=== PATIENT | female | born 1930 | race Caucasian/White ===

== ENCOUNTER 2021-01-05 13:03 | Inpatient (IN) ==
--- NOTE | 2021-01-05 14:08 | Emergency Department Note ---
Impression & Plan Acute GI bleeding, High serum chloride ED Provider Note NAME: KATHERYN RAYMUNDO AGE: 89 SEX: F : 1930 ARRIVES VIA: Ambulance INFORMANT: Patient, Chelle MOLINA ED PROVIDER(S): Frank Hammond DO CHIEF COMPLAINT: Blood in stool HPI: Patient is an 89-year-old female who presents to the ER for blood in stool. Patient denies any other complaints. She is undergoing preop testing for loose hardware in her ankle which is protruding through the skin. She has been having black stools and was heme positive. She was on Eliquis for A. fib and they stopped it this morning. She denies any headache or change in vision. No chest pain or shortness of breath. No nausea, vomiting, or diarrhea. No dysuria, urgency, or frequency. ROS: See above HPI for pertinent positives & negatives. A total of 10 systems reviewed and were otherwise negative. PAST MEDICAL HISTORY:See Below PAST SURGICAL HISTORY:See Below FAMILY HISTORY:See Below SOCIAL HISTORY:See Below HOME MEDICATIONS:See Below ALLERGIES:See Below VITALS:See Below PHYSICAL EXAMINATION: GENERAL: Sitting up in bed, alert, well appearing, well nourished, no distress, non-toxic EYE EXAM: normal conjunctiva. OROPHARYNX: no exudate, no erythema, lips, buccal mucosa, and tongue normal and mucous membranes are moist NECK: supple, no nuchal rigidity, no adenopathy, non-tender LUNGS: Clear to auscultation. Normal chest wall mechanics HEART: no murmurs, S1 normal and S2 normal ABDOMEN: abdomen soft, non-tender, normo-active bowel sounds, no masses, no rebound or guarding. UPPER EXTREMITIES: upper extremities are grossly normal. LOWER EXTREMITIES: No pitting edema. NEURO EXAM: Awake alert following commands pleasantly demented moving all extremities MEDICAL DECISION MAKING: Patient is an 89-year-old female who presents the ER for GI bleed. She is from [facility] and then trying to set up surgery for her ankle with protruding hardware present. They noticed dark stool yesterday. Had blood work obtained and she was rectally heme positive. I stopped her Eliquis this morning. IV was established blood work obtained. Labs show no significant leukocytosis or anemia. Hemoglobin is 12.4 down from 13 about a month ago. BMP with slightly elevated chloride. LFTs bilirubin was unremarkable. Troponin was negative. Covid was ordered. CT abdomen pelvis showed some likely inflammation in the lower rectum. Rectally heme positive with dark stool performed with and then RN at bedside. Patient was updated and discussed with Dr. Juana Tejada for further evaluation. Triage Nursing notes reviewed. Limited review of prior medical records performed Vital Signs: reviewed and remarkable for no significant abnormalities Differential diagnosis: Differential diagnoses includes but is not limited to toxic, metabolic, infe ctious, traumatic, cardiac, neurologic, hematologic, psychiatric and inflammatory etiologies.Differential diagnosis includes etiologies such as diverticulitis, diverticulosis, AVM, coagulopathy, colitis, inflammatory bowel disease, malignancy, Delisa-Castanon tear, esophagitis, peptic ulcer disease, v ariceal bleed, gastritis, epistaxis, fissure, hemorrhoids, as well as others were entertained. ER treatment provided: See below Diagnostics interpreted by me: ECG: A. fib rate of 73 Left axis No PVCs Septal Q waves Cardiac Monitoring: An order was placed for continuous cardiac monitoring. The monitor shows a rate of 70 with sinus rhythm. Laboratory studies: As stated above and show below. Imaging studies: CT abdomen pelvis as discussed above Consultation(s): Assist Dr. De La O from GI Discussed with Juana Tejada for further evaluation of the hospitalist service Procedures: none Critical Care: None Past Med/Surg History Medical History Atrial fibrillation on Apixaban Dementia Gastroesophageal reflux disease with hiatal hernia Hypertension Insomnia Surgical History H/O: hysterectomy History of ankle surgery 1999 Social History Smoking Status: Unknown if ever smoked Current Living Situation: Correction Feels Safe at Home: Yes Allergies Allergies Allergy/AdvReac Type Severity Reaction Status Date / Time No Known Drug Allergies Allergy Unknown Verified 01/05/21 15:13 Home Meds Home Medications Medication Instructions Recorded Confirmed apixaban 2.5 mg tablet 2.5 mg PO BID 09/22/20 01/05/21 ascorbic acid (vitamin C) 250 mg 250 mg PO BID 09/22/20 01/05/21 tablet benzonatate 100 mg capsule 100 mg PO BID PRN 09/22/20 01/05/21 cholecalciferol (vitamin D3) 25 25 mcg PO QAM 09/22/20 01/05/21 mcg (1,000 unit) capsule docusate sodium 100 mg capsule 100 mg PO BID PRN 09/22/20 01/05/21 famotidine 20 mg tablet 20 mg PO BID 09/22/20 01/05/21 ferrous sulfate 325 mg (65 mg 325 mg PO BID 09/22/20 01/05/21 iron) tablet furosemide 20 mg tablet 20 mg PO QAM 09/22/20 01/05/21 memantine 10 mg tablet 10 mg PO BID 09/22/20 01/05/21 mirtazapine 15 mg tablet 15 mg PO HS 09/22/20 01/05/21 triamcinolone acetonide 0.1 % 1 applic TOPICAL .COMPLEX PRN 09/22/20 01/05/21 topical cream acetaminophen 1,000 mg PO TID PRN 12/06/20 01/05/21 food supplemt, lactose-reduced 1 ea PO DAILY 12/06/20 01/05/21 [Ensure] metoprolol succinate 50 mg PO QAM 12/06/20 01/05/21 potassium chloride 10 meq PO QAM 12/06/20 01/05/21 saliva substitute combo no.9 1 ea PO TID PRN 12/06/20 01/05/21 [Biotene Dry Mouth Oral Rinse] pantoprazole 40 mg PO DAILY 01/05/21 01/05/21 Results & Data (ED) Vital Signs Vital Signs - 24 hr 01/05/21 13:11 01/05/21 13:23 01/05/21 13:30 Temperature 36.5 C Temperature Source Oral Pulse Rate 78 82 Respiratory Rate 20 19 Respiratory Effort / Characteristics Non-Labored Respiratory Depth Normal Respiratory Pattern Regular Blood Pressure 117/64 112/66 Blood Pressure Mean 81 81 Pulse Oximetry 95 Oxygen Delivery Method Room Air Sepsis Recent Fever Within 48 Hours No Sepsis New/Unexplained Change in Mental Status N/A Sepsis Action Taken by Nursing No Action Required 01/05/21 14:00 01/05/21 14:30 01/05/21 15:01 Temperature Temperature Source Pulse Rate 83 83 98 H Respiratory Rate 22 23 15 Respiratory Effort / Characteristics Respiratory Depth Respiratory Pattern Blood Pressure 109/60 114/68 133/94 Blood Pressure Mean 76 83 107 Pulse Oximetry Oxygen Delivery Method Sepsis Recent Fever Within 48 Hours Sepsis New/Unexplained Change in Mental Status Sepsis Action Taken by Nursing 01/05/21 15:30 01/05/21 16:01 01/05/21 16:30 Temperature Temperature Source Pulse Rate 85 85 77 Respiratory Rate 35 H 19 19 Respiratory Effort / Characteristics Respiratory Depth Respiratory Pattern Blood Pressure Blood Pressure Mean 98 Pulse Oximetry Oxygen Delivery Method Sepsis Recent Fever Within 48 Hours Sepsis New/Unexplained Change in Mental Status Sepsis Action Taken by Nursing 01/05/21 17:00 01/05/21 17:30 01/05/21 18:00 Temperature Temperature Source Pulse Rate 90 96 H Respiratory Rate 23 26 H 29 H Respiratory Effort / Characteristics Respiratory Depth Respiratory Pattern Blood Pressure 137/78 160/86 H Blood Pressure Mean 97 110 Pulse Oximetry Oxygen Delivery Method Sepsis Recent Fever Within 48 Hours Sepsis New/Unexplained Change in Mental Status Sepsis Action Taken by Nursing 01/05/21 18:30 01/05/21 19:01 Temperature Temperature Source Pulse Rate 140 H Respiratory Rate 22 23 Respiratory Effort / Characteristics Respiratory Depth Respiratory Pattern Blood Pressure 157/78 H Blood Pressure Mean 104 Pulse Oximetry Oxygen Delivery Method Sepsis Recent Fever Within 48 Hours Sepsis New/Unexplained Change in Mental Status Sepsis Action Taken by Nursing Laboratory Data Result diagrams: 01/05/21 14:33 01/05/21 14:00 Lab Results 01/05/21 01/05/21 01/05/21 Range/Units 14:00 14:00 14:00 WBC Cancelled RBC Cancelled Hgb Cancelled Hct Cancelled MCV Cancelled MCH Cancelled MCHC Cancelled RDW Std Deviation Cancelled RDW Coeff of Dayami Cancelled Plt Count Cancelled MPV Cancelled Immature Gran % (Auto) Cancelled Neut % (Auto) Cancelled Lymph % (Auto) Cancelled [place] % (Auto) Cancelled Eos % (Auto) Cancelled Baso % (Auto) Cancelled Neut # (Auto) Cancelled Lymph # (Auto) Cancelled [place] # (Auto) Cancelled Eos # (Auto) Cancelled Baso # (Auto) Cancelled Immature Gran # (Auto) Cancelled Absolute Nucleated RBC Cancelled Nucleated RBC % (auto) Cancelled Neutrophils % (Manual) Cancelled Band Neutrophils % Cancelled Lymphocytes % (Manual) Cancelled Prolymphocyte % Cancelled Reactive Lymphs % (Man) Cancelled Monocytes % (Manual) Cancelled Eosinophils % (Manual) Cancelled Basophils % (Manual) Cancelled Metamyelocytes % (Man) Cancelled Myelocytes % (Man) Cancelled Promyelocytes % (Man) Cancelled Blast Cells % (Manual) Cancelled Plasma Cell % (Manual) Cancelled Other Cells % Cancelled Nucleated RBC % Cancelled Neutrophils # (Manual) Cancelled Band Neutrophils # Cancelled Total Absolute Neuts Cancelled Lymphocytes # (Manual) Cancelled Prolymphocyte # Cancelled Reactive Lymphs # Cancelled Total Abs Lymphocytes Cancelled Monocytes # (Manual) Cancelled Eosinophils # (Manual) Cancelled Basophils # (Manual) Cancelled Metamyelocytes # (Man) Cancelled Myelocytes # (Manual) Cancelled Promyelocytes # (Man) Cancelled Blast Cells # (Man) Cancelled Plasma Cell # (Manual) Cancelled Other Cells # Cancelled Nucleated RBCs # (Man) Cancelled Hypersegmented Neuts Cancelled Hyposegmented Neuts Cancelled Hypogranular Neuts Cancelled Large Granular Lymphs Cancelled # Lrg Granular Lymphs Cancelled Hairy Cells Cancelled Smudge Cells Cancelled Toxic Granulation Cancelled Toxic Vacuolation Cancelled Dohle Bodies Cancelled Courtney Rods Cancelled Platelet Estimate Cancelled Hypogranular Platelets Cancelled Clumped Platelets Cancelled Giant Platelets Cancelled Platelet Satelliting Cancelled RBC Morphology Cancelled Polychromasia Cancelled Hypochromasia Cancelled Poikilocytosis Cancelled Basophilic Stippling Cancelled Anisocytosis Cancelled Microcytosis Cancelled Macrocytosis Cancelled Spherocytes Cancelled Pappenheimer Bodies Cancelled Sickle Cells Cancelled Target Cells Cancelled Tear Drop Cells Cancelled Ovalocytes Cancelled Stomatocytes Cancelled Koch-[place] Bodies Cancelled Echinocytes Cancelled Acanthocytes (Spur) Cancelled Rouleaux Cancelled RBC Agglutinates Cancelled Schistocytes Cancelled RBC Morph Comment Cancelled Sezary Cell Cancelled PT Cancelled INR Cancelled APTT Cancelled PTT Ratio Cancelled Sodium 138 (136-145) mmol/L Potassium 4.6 (3.5-5.1) mmol/L Chloride 108 H (98-107) mmol/L Carbon Dioxide 26 (21-32) mmol/L Anion Gap 4.0 (3-11) BUN 24 H (7-18) mg/dl Creatinine 0.89 (0.6-1.2) mg/dl Est Cr Clr Drug Dosing 34.3 ml/min Est GFR ( Amer) 67.1 ml/min Est GFR (Non-Af Amer) 57.9 ml/min BUN/Creatinine Ratio 26.8 H (10-20) Glucose 83 (70-99) mg/dl Calcium 9.8 (8.5-10.1) mg/dl Total Bilirubin 0.7 (0.2-1) mg/dl AST 15 (15-37) U/L ALT 11 L (12-78) U/L Alkaline Phosphatase 131 H (45-117) U/L Troponin I < 0.015 (0-0.045) ng/ml Total Protein 6.7 (6.4-8.2) gm/dl Albumin 3.2 L (3.4-5.0) gm/dl Globulin 3.5 (2.5-4.0) gm/dl Albumin/Globulin Ratio 0.9 (0.9-2) POC Stool Occult Blood (Negative) COVID-19 Eval Order Blood Type Antibody Screen 01/05/21 01/05/21 01/05/21 Range/Units 14:10 14:33 14:33 WBC 5.37 RBC 4.11 L Hgb 12.4 Hct 37.8 MCV 92.0 MCH 30.2 MCHC 32.8 RDW Std Deviation 61.1 H RDW Coeff of Dayami 18.1 H Plt Count 397 MPV 10.0 Immature Gran % (Auto) 0.2 Neut % (Auto) 68.5 Lymph % (Auto) 17.7 [place] % (Auto) 11.9 Eos % (Auto) 1.5 Baso % (Auto) 0.2 Neut # (Auto) 3.68 Lymph # (Auto) 0.95 L [place] # (Auto) 0.64 H Eos # (Auto) 0.08 Baso # (Auto) 0.01 Immature Gran # (Auto) 0.01 Absolute Nucleated RBC Nucleated RBC % (auto) Neutrophils % (Manual) Band Neutrophils % Lymphocytes % (Manual) Prolymphocyte % Reactive Lymphs % (Man) Monocytes % (Manual) Eosinophils % (Manual) Basophils % (Manual) Metamyelocytes % (Man) Myelocytes % (Man) Promyelocytes % (Man) Blast Cells % (Manual) Plasma Cell % (Manual) Other Cells % Nucleated RBC % Neutrophils # (Manual) Band Neutrophils # Total Absolute Neuts Lymphocytes # (Manual) Prolymphocyte # Reactive Lymphs # Total Abs Lymphocytes Monocytes # (Manual) Eosinophils # (Manual) Basophils # (Manual) Metamyelocytes # (Man) Myelocytes # (Manual) Promyelocytes # (Man) Blast Cells # (Man) Plasma Cell # (Manual) Other Cells # Nucleated RBCs # (Man) Hypersegmented Neuts Hyposegmented Neuts Hypogranular Neuts Large Granular Lymphs # Lrg Granular Lymphs Hairy Cells Smudge Cells Toxic Granulation Toxic Vacuolation Dohle Bodies Courtney Rods Platelet Estimate Hypogranular Platelets Clumped Platelets Giant Platelets Platelet Satelliting RBC Morphology Polychromasia Hypochromasia Poikilocytosis Basophilic Stippling Anisocytosis Microcytosis Macrocytosis Spherocytes Pappenheimer Bodies Sickle Cells Target Cells Tear Drop Cells Ovalocytes Stomatocytes Koch-[place] Bodies Echinocytes Acanthocytes (Spur) Rouleaux RBC Agglutinates Schistocytes RBC Morph Comment Sezary Cell PT 11.9 INR 1.2 H APTT 25.7 PTT Ratio 1.0 Sodium (136-145) mmol/L Potassium (3.5-5.1) mmol/L Chloride (98-107) mmol/L Carbon Dioxide (21-32) mmol/L Anion Gap (3-11) BUN (7-18) mg/dl Creatinine (0.6-1.2) mg/dl Est Cr Clr Drug Dosing ml/min Est GFR ( Amer) ml/min Est GFR (Non-Af Amer) ml/min BUN/Creatinine Ratio (10-20) Glucose (70-99) mg/dl Calcium (8.5-10.1) mg/dl Total Bilirubin (0.2-1) mg/dl AST (15-37) U/L ALT (12-78) U/L Alkaline Phosphatase (45-117) U/L Troponin I (0-0.045) ng/ml Total Protein (6.4-8.2) gm/dl Albumin (3.4-5.0) gm/dl Globulin (2.5-4.0) gm/dl Albumin/Globulin Ratio (0.9-2) POC Stool Occult Blood (Negative) COVID-19 Eval Order Blood Type O Positive Antibody Screen NEGATIVE 01/05/21 01/05/21 Range/Units 18:02 18:30 WBC RBC Hgb Hct MCV MCH MCHC RDW Std Deviation RDW Coeff of Dayami Plt Count MPV Immature Gran % (Auto) Neut % (Auto) Lymph % (Auto) [place] % (Auto) Eos % (Auto) Baso % (Auto) Neut # (Auto) Lymph # (Auto) [place] # (Auto) Eos # (Auto) Baso # (Auto) Immature Gran # (Auto) Absolute Nucleated RBC Nucleated RBC % (auto) Neutrophils % (Manual) Band Neutrophils % Lymphocytes % (Manual) Prolymphocyte % Reactive Lymphs % (Man) Monocytes % (Manual) Eosinophils % (Manual) Basophils % (Manual) Metamyelocytes % (Man) Myelocytes % (Man) Promyelocytes % (Man) Blast Cells % (Manual) Plasma Cell % (Manual) Other Cells % Nucleated RBC % Neutrophils # (Manual) Band Neutrophils # Total Absolute Neuts Lymphocytes # (Manual) Prolymphocyte # Reactive Lymphs # Total Abs Lymphocytes Monocytes # (Manual) Eosinophils # (Manual) Basophils # (Manual) Metamyelocytes # (Man) Myelocytes # (Manual) Promyelocytes # (Man) Blast Cells # (Man) Plasma Cell # (Manual) Other Cells # Nucleated RBCs # (Man) Hypersegmented Neuts Hyposegmented Neuts Hypogranular Neuts Large Granular Lymphs # Lrg Granular Lymphs Hairy Cells Smudge Cells Toxic Granulation Toxic Vacuolation Dohle Bodies Courtney Rods Platelet Estimate Hypogranular Platelets Clumped Platelets Giant Platelets Platelet Satelliting RBC Morphology Polychromasia Hypochromasia Poikilocytosis Basophilic Stippling Anisocytosis Microcytosis Macrocytosis Spherocytes Pappenheimer Bodies Sickle Cells Target Cells Tear Drop Cells Ovalocytes Stomatocytes Koch-[place] Bodies Echinocytes Acanthocytes (Spur) Rouleaux RBC Agglutinates Schistocytes RBC Morph Comment Sezary Cell PT INR APTT PTT Ratio Sodium (136-145) mmol/L Potassium (3.5-5.1) mmol/L Chloride (98-107) mmol/L Carbon Dioxide (21-32) mmol/L Anion Gap (3-11) BUN (7-18) mg/dl Creatinine (0.6-1.2) mg/dl Est Cr Clr Drug Dosing ml/min Est GFR ( Amer) ml/min Est GFR (Non-Af Amer) ml/min BUN/Creatinine Ratio (10-20) Glucose (70-99) mg/dl Calcium (8.5-10.1) mg/dl Total Bilirubin (0.2-1) mg/dl AST (15-37) U/L ALT (12-78) U/L Alkaline Phosphatase (45-117) U/L Troponin I (0-0.045) ng/ml Total Protein (6.4-8.2) gm/dl Albumin (3.4-5.0) gm/dl Globulin (2.5-4.0) gm/dl Albumin/Globulin Ratio (0.9-2) POC Stool Occult Blood Negative (Negative) COVID-19 Eval Order Covid19 at [facility] Blood Type Antibody Screen Administered Medications Discontinued Medications Sodium Chloride (Nss) 500 mls @ 999 mls/hr IV .Q31M DESIRAE Stop: 01/05/21 14:45 Last Infusion: 01/05/21 15:13 Dose: 0 mls/hr Documented by: [id number] Admin: 01/05/21 14:35 Dose: 999 mls/hr Documented by: [id number] Ioversol (Optiray 320 100ml) 94 ml IV ONCE ONE Stop: 01/05/21 15:50 Last Admin: 01/05/21 15:49 Dose: 94 ml Documented by: [id number] Imaging Data Radiologist's Impression: Abdomen/Pelvis CT 01/05/21 14:[address] WITH IV CONTRAST CT DOSE: 336.29 mGy.cm HISTORY: Generalized abdominal pain. GI bleed. TECHNIQUE: Multiaxial CT images of the abdomen and pelvis were performed following the use of intravenous contrast. A dose lowering technique was utilized adhering to the principles of ALARA. COMPARISON STUDY: None. FINDINGS: The heart is moderately enlarged. There is a small right pleural effusion. Right lower lobe posterior consolidation favors compressive atelectasis from the pleural effusion. No pneumoperitoneum. No pneumatosis. Multiple healing left lower rib fractures. Partially visualized compression deformity at T9. There are severe compression deformity is at T11, L1, and L3. These are technically age indeterminate but likely represent subacute to chronic compression deformities. There appears to be acute to subacute mild superior endplate compression deformity at L2. There are old, healed right lower rib fractures. Mild heterogeneous opacification of the liver. There are few small hypodense hepatic lesions. These favor cysts. The gallbladder is suboptimally assessed due to the motion artifact but appears unremarkable. The pancreas, spleen, adrenal glands are unremarkable. The main portal vein is patent. No hydronephrosis. Bilateral renal hypodense lesions favor cysts. No retroperitoneal lymphadenopathy or hematoma. Moderate calcified plaque within the normal caliber abdominal aorta. 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 The bladder is unremarkable. Moderate well-formed stool seen throughout the majority colon and rectum. No dilated loops of bowel to suggest an obstruction. Extensive colonic diverticulosis. No evidence for acute diverticulitis. Mild thickening at the distal rectum/anus with mild adjacent inflammatory change. This could represent an inflammatory process or hemorrhoids. IMPRESSION: 1. Mild thickening at the distal rectum/anus with mild adjacent inflammatory change. This could represent an inflammatory process or hemorrhoids. 2. Colonic diverticulosis. No evidence for acute diverticulitis. 3. Small right pleural effusion. 4. Multiple compression deformities within the lower thoracic and lumbar spine as described above. The majority of these appear to represent subacute to chronic fractures. The L2 mild superior endplate compression deformity may be acute to subacute.. 5. Multiple healing left lower rib fractures. 6. 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 7. Additional findings as described above. ACT 112: Negative or not required by law. Electronically signed by: Mushtaq Rosenberg M.D. 01/05/2021 4:06 PM Discharge Plan Visit Data Chief Complaint: Rectal Bleed Stated Complaint: HIP PAIN, GI ASSESSMENT ED Provider: Frank Hammond Discharge Problem: Acute GI bleeding, High serum chloride Forms Stand Alone Forms: [facility] Prescriptions Prescriptions: No Action Eliquis 2.5 mg tablet 2.5 mg PO BID RF: 0 famotidine 20 mg tablet 20 mg PO BID RF: 0 ferrous sulfate 325 mg (65 mg iron) tablet 325 mg PO BID RF: 0 furosemide 20 mg tablet 20 mg PO QAM RF: 0 memantine 10 mg tablet 10 mg PO BID RF: 0 mirtazapine 15 mg tablet 15 mg PO HS RF: 0 ascorbic acid (vitamin C) 250 mg tablet 250 mg PO BID RF: 0 cholecalciferol (vitamin D3) 25 mcg (1,000 unit) capsule 25 mcg PO QAM RF: 0 benzonatate 100 mg capsule 100 mg PO BID PRN (Reason: Cough) RF: 0 docusate sodium 100 mg capsule 100 mg PO BID PRN (Reason: Constipation) RF: 0 triamcinolone acetonide 0.1 % cream 1 applic topical .COMPLEX PRN (Reason: .) RF: 0 potassium chloride 10 mEq Capsule, Extended Release 10 meq PO QAM RF: 0 metoprolol succinate 50 mg Tablet Extended Release 24 Hr 50 mg PO QAM RF: 0 acetaminophen 500 mg Tablet 1,000 mg PO TID PRN (Reason: Pain) RF: 0 Ensure Liquid 1 ea PO DAILY RF: 0 Biotene Dry Mouth Oral Rinse Mouthwash 1 ea PO TID PRN (Reason: Dry Mouth) RF: 0 pantoprazole 40 mg Tablet,Delayed Release (Dr/Ec) 40 mg PO DAILY RF: 0
[2021-01-05] MEDS ORDERED: SODIUM CHLORIDE 0.9% 500 ML IV SCH (14:15)
[2021-01-05 14:37] LABS: Alanine Aminotransferase 11 U/L (12-78); Albumin Level 3.2 gm/dl (3.4-5.0); Aspartate Aminotransferase 15 U/L (15-37); BUN Creatinine Ratio 26.8 (10-20); Blood Urea Nitrogen 24 mg/dl (7-18); Calcium 9.8 mg/dl (8.5-10.1); Carbon Dioxide 26 mmol/L (21-32); Chloride 108 mmol/L (98-107); Creatinine Clr Calc Pharmacy 34.3 ml/min; Est GFR (African American) 67.1 ml/min; Est GFR (Non-African American) 57.9 ml/min; Glucose 83 mg/dl (70-99); Potassium 4.6 mmol/L (3.5-5.1); Sodium 138 mmol/L (136-145)
[2021-01-05 14:42] LABS: Albumin Globulin Ratio 0.9 (0.9-2); Alkaline Phosphatase 131 U/L (45-117); Bilirubin,Total 0.7 mg/dl (0.2-1); Globulin 3.5 gm/dl (2.5-4.0); Total Protein 6.7 gm/dl (6.4-8.2); Troponin I < 0.015 ng/ml (0-0.045)
[2021-01-05 14:45] LABS: Basophils # (auto) 0.01 K/uL (0-0.2); Basophils % (auto) 0.2 %; Eosinophils # (auto) 0.08 K/uL (0-0.5); Eosinophils % (auto) 1.5 %; Hematocrit (blood only) 37.8 % (37-47); Hemoglobin 12.4 g/dL (12.0-16.0); Immature Granulocytes # (auto) 0.01 K/uL (0.00-0.02); Immature Granulocytes % (auto) 0.2 %; Lymphocytes # (auto) 0.95 K/uL (1.2-3.4); Lymphocytes % (auto) 17.7 %; Mean Corpuscular Hemoglobin 30.2 pg (25-34); Mean Corpuscular Hgb Conc 32.8 g/dL (32-36); Monocytes # (auto) 0.64 K/uL (0.11-0.59); Monocytes % (auto) 11.9 %; Neutrophils # (auto) 3.68 K/uL (1.4-6.5); Neutrophils % (auto) 68.5 %; Platelet Count 397 K/uL (130-400); RDW Coefficient of Variation 18.1 % (11.5-14.5); RDW Standard Deviation 61.1 fL (36.4-46.3); Red Blood Count 4.11 M/uL (4.2-5.4); White Blood Count 5.37 K/uL (4.8-10.8)
[2021-01-05 14:52] LABS: INR 1.2 (0.9-1.1); Partial Thromboplastin Time 25.7 Seconds (21.0-31.0); Prothrombin Time 11.9 Seconds (9.0-12.0)
[2021-01-05] MEDS ORDERED: OPTIRAY 320 100ml IV ONE (15:49)
--- NOTE | 2021-01-05 16:07 | CT Scan Report ---
ABDOMEN AND PELVIS CT WITH IV CONTRAST CT DOSE: 336.29 mGy.cm HISTORY: Generalized abdominal pain. GI bleed. TECHNIQUE: Multiaxial CT images of the abdomen and pelvis were performed following the use of intrave nous contrast. A dose lowering technique was utilized adhering to the principles of ALARA. COMPARISON STUDY: None. FINDINGS: The heart is moderately enlarged. There is a small right pleural effusion. Right lower lobe posterior consolidation favors compressive atelectasis from the pleural effusion. No pneumoperitoneu m. No pneumatosis. Multiple healing left lower rib fractures. Partially visualized compression deform ity at T9. There are severe compression deformity is at T11, L1, and L3. These are technically age in determinate but likely represent subacute to chronic compression deformities. There appears to be acu te to subacute mild superior endplate compression deformity at L2. There are old, healed right lower rib fractures. Mild heterogeneous opacification of the liver. There are few small hypodense hepatic l esions. These favor cysts. The gallbladder is suboptimally assessed due to the motion artifact but ap pears unremarkable. The pancreas, spleen, adrenal glands are unremarkable. The main portal vein is pa tent. No hydronephrosis. Bilateral renal hypodense lesions favor cysts. No retroperitoneal lymphadeno gavin or hematoma. Moderate calcified plaque within the normal caliber abdominal aorta. Aneurysmal di latation of the proximal left internal iliac artery measuring 1.9 cm in diameter. The bladder is unre markable. Moderate well-formed stool seen throughout the majority colon and rectum. No dilated loops of bowel to suggest an obstruction. Extensive colonic diverticulosis. No evidence for acute diverticu litis. Mild thickening at the distal rectum/anus with mild adjacent inflammatory change. This could r epresent an inflammatory process or hemorrhoids. IMPRESSION: 1. Mild thickening at the distal rectum/anus with mild adjacent inflammatory change. This could repre sent an inflammatory process or hemorrhoids. 2. Colonic diverticulosis. No evidence for acute diverticulitis. 3. Small right pleural effusion. 4. Multiple compression deformities within the lower thoracic and lumbar spine as described above. Th e majority of these appear to represent subacute to chronic fractures. The L2 mild superior endplate compression deformity may be acute to subacute.. 5. Multiple healing left lower rib fractures. 6. 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 7. Additional findings as described above. ACT 112: Negative or not required by law. Electronically signed by: Mushtaq Rosenberg M.D. 01/05/2021 4:06 PM
--- NOTE | 2021-01-05 19:51 | History & Physical Report ---
Date of Service January 05, 2021 Assessment & Plan (1) Acute GI bleedinyo female presenting from [facility] with complaint of black, tarry heme + stools. Patient on Eliquis anticoagulation for atrial fibrillation. Hemodynamically stable, Hgb=12.4, Hct=37.8. No active bleeding. ER attending spoke with GI re: this case and recommended to admit patient to hospital and keep her NPO, possible scope in AM. -Observation to medical with telemetry -Keep NPO -Maintain two large bore PIVs -Pepcid 20mg IV BID -Continue Protonix 40mg po daily -Monitor CBC -GI consultation appreciated Present on Admission?: Yes (2) Atrial fibrillation: Rate controlled atrial fibrillation. On anticoagulation with Eliquis -Continue Metoprolol 50mg po qAM -Hold Eliquis in setting of active bleed -Telemetry monitoring Present on Admission?: Yes (3) Dementia: Chronic. Patient oriented to self. -Continue Namenda -Frequent orientation, delirium prevention strategies Present on Admission?: Yes (4) Rib pain: Tenderness with palpation left rib -Check left rib series -Tylenol PRN pain Present on Admission?: Yes (5) Hypertension: Blood pressure stable at present -Continue Metoprolol -Continue to monitor F/E/N - LR at 80mL/hr x 1 liter, monitor electrolytes and replete as needed, NPO for now Ppx - SCDs Code - Full per discussion with patient Dispo - Observation to medical with telemetry (6) Gastroesophageal reflux disease with hiatal hernia: History of Present Illness Chief Complaint: Rectal bleeding Primary Care Provider: Madeleine [facility] Olegario Smyth is an 89yo female with history of atrial fibrillation on Eliquis anticoagulation, GERD, HTN and Dementia. She presents from [facility] with complaint of black bowel movements. Patient is a poor historian secondary to underlying dementia. She is unaware of the events preceding her arrival. History obtained mainly through discussion with ER attending and chart review. By report, patient had black, tarry bowel movements yesterday. Patient denies chest pain, cough, SOB, dizziness, abdominal pain, nausea, vomiting or constipation. She has occasional diarrhea but is unaware of any blood in her bowel movements. She is complaining only of left rib pain. She is to have repair of her left ankle hardware sometime in the future. ER Course: Heme + stools from 01/04/21 and today Allergies Allergy/AdvReac Type Severity Reaction Status Date / Time No Known Drug Allergies Allergy Unknown Verified 01/05/21 15:13 Home Medications Medication Instructions Recorded Confirmed Type apixaban 2.5 mg tablet 2.5 mg PO BID 09/22/20 01/05/21 History ascorbic acid (vitamin C) 250 mg 250 mg PO BID 09/22/20 01/05/21 History tablet benzonatate 100 mg capsule 100 mg PO BID PRN 09/22/20 01/05/21 History cholecalciferol (vitamin D3) 25 25 mcg PO QAM 09/22/20 01/05/21 History mcg (1,000 unit) capsule docusate sodium 100 mg capsule 100 mg PO BID PRN 09/22/20 01/05/21 History famotidine 20 mg tablet 20 mg PO BID 09/22/20 01/05/21 History ferrous sulfate 325 mg (65 mg 325 mg PO BID 09/22/20 01/05/21 History iron) tablet furosemide 20 mg tablet 20 mg PO QAM 09/22/20 01/05/21 History memantine 10 mg tablet 10 mg PO BID 09/22/20 01/05/21 History mirtazapine 15 mg tablet 15 mg PO HS 09/22/20 01/05/21 History triamcinolone acetonide 0.1 % 1 applic TOPICAL .COMPLEX PRN 09/22/20 01/05/21 History topical cream acetaminophen 1,000 mg PO TID PRN 12/06/20 01/05/21 History food supplemt, lactose-reduced 1 ea PO DAILY 12/06/20 01/05/21 History [Ensure] metoprolol succinate 50 mg PO QAM 12/06/20 01/05/21 History potassium chloride 10 meq PO QAM 12/06/20 01/05/21 History saliva substitute combo no.9 1 ea PO TID PRN 12/06/20 01/05/21 History [Biotene Dry Mouth Oral Rinse] pantoprazole 40 mg PO DAILY 01/05/21 01/05/21 History Past Med/Surg History Medical History Atrial fibrillation on Apixaban Dementia Gastroesophageal reflux disease with hiatal hernia Hypertension Insomnia Surgical History H/O: hysterectomy History of ankle surgery 1999 Social History Smoking Status: Unknown if ever smoked Current Living Situation: [facility] Feels Safe at Home: Yes Review of Systems Review of Systems: All systems reviewed & are unremarkable except as noted in HPI & below Left rib pain Diarrhea Physical Exam Physical Exam: General: frail elderly patient resting comfortably, NAD, non- toxic in appearance, AA&O to self only Skin: warm, dry, intact, no rashes or lesions HEENT: NC/AT, PERRL, EOMI, anicteric sclera, conjunctiva without injection, external ear normal to inspection and nontender, nares patent, moist mucus membranes, dentition intact, no oropharyngeal lesions, neck supple, trachea midline, no LAD, no thyromegaly, no JVD Heart: +S1/S2, irregularly irregular, no m/r/g Lungs: equal air entry bilaterally, no rales/rhonchi/wheezes, tenderness with palpation of left ribs Abd: +BS, soft, NT/ND, no masses/organomegaly/ascites Ext: warm, 2+ pulses in UE/LE bilaterally, no clubbing/cyanosis or edema Neuro: nonfocal, patient AA&O to self, speech intact, no facial droop, moving all extremities on command with equal strength 5/5 Results & Data Results & Data ([facility]) Vital Signs (Past 12 Hours) Vital Signs Temp Pulse Resp BP Pulse Ox 01/05/21 19:01 140 H 23 01/05/21 18:30 22 157/78 H 01/05/21 18:00 96 H 29 H 160/86 H 01/05/21 17:30 90 26 H 137/78 01/05/21 17:00 23 01/05/21 16:30 77 19 01/05/21 16:01 85 19 01/05/21 15:30 85 35 H 01/05/21 15:01 98 H 15 133/94 01/05/21 14:30 83 23 114/68 01/05/21 14:00 83 22 109/60 01/05/21 13:30 82 19 112/66 01/05/21 13:23 36.5 C 78 20 117/64 95 Laboratory Results Laboratory Results WBC 5.37 K/uL (4.8-10.8) 01/05/21 14:33 RBC 4.11 M/uL (4.2-5.4) L 01/05/21 14:33 Hgb 12.4 g/dL (12.0-16.0) 01/05/21 14:33 Hct 37.8 % (37-47) 01/05/21 14:33 MCV 92.0 fL (80-100) 01/05/21 14:33 MCH 30.2 pg (25-34) 01/05/21 14:33 MCHC 32.8 g/dL (32-36) 01/05/21 14:33 RDW Std Deviation 61.1 fL (36.4-46.3) H 01/05/21 14:33 RDW Coeff of Dayami 18.1 % (11.5-14.5) H 01/05/21 14:33 Plt Count 397 K/uL (130-400) 01/05/21 14:33 MPV 10.0 fL (7.4-10.4) 01/05/21 14:33 Immature Gran % (Auto) 0.2 % 01/05/21 14:33 Neut % (Auto) 68.5 % 01/05/21 14:33 Lymph % (Auto) 17.7 % 01/05/21 14:33 Charlton % (Auto) 11.9 % 01/05/21 14:33 Eos % (Auto) 1.5 % 01/05/21 14:33 Baso % (Auto) 0.2 % 01/05/21 14:33 Neut # (Auto) 3.68 K/uL (1.4-6.5) 01/05/21 14:33 Lymph # (Auto) 0.95 K/uL (1.2-3.4) L 01/05/21 14:33 Charlton # (Auto) 0.64 K/uL (0.11-0.59) H 01/05/21 14:33 Eos # (Auto) 0.08 K/uL (0-0.5) 01/05/21 14:33 Baso # (Auto) 0.01 K/uL (0-0.2) 01/05/21 14:33 Immature Gran # (Auto) 0.01 K/uL (0.00-0.02) 01/05/21 14:33 Absolute Nucleated RBC Cancelled 01/05/21 14:00 Nucleated RBC % (auto) Cancelled 01/05/21 14:00 Neutrophils % (Manual) Cancelled 01/05/21 14:00 Band Neutrophils % Cancelled 01/05/21 14:00 Lymphocytes % (Manual) Cancelled 01/05/21 14:00 Prolymphocyte % Cancelled 01/05/21 14:00 Reactive Lymphs % (Man) Cancelled 01/05/21 14:00 Monocytes % (Manual) Cancelled 01/05/21 14:00 Eosinophils % (Manual) Cancelled 01/05/21 14:00 Basophils % (Manual) Cancelled 01/05/21 14:00 Metamyelocytes % (Man) Cancelled 01/05/21 14:00 Myelocytes % (Man) Cancelled 01/05/21 14:00 Promyelocytes % (Man) Cancelled 01/05/21 14:00 Blast Cells % (Manual) Cancelled 01/05/21 14:00 Plasma Cell % (Manual) Cancelled 01/05/21 14:00 Other Cells % Cancelled 01/05/21 14:00 Nucleated RBC % Cancelled 01/05/21 14:00 Neutrophils # (Manual) Cancelled 01/05/21 14:00 Band Neutrophils # Cancelled 01/05/21 14:00 Total Absolute Neuts Cancelled 01/05/21 14:00 Lymphocytes # (Manual) Cancelled 01/05/21 14:00 Prolymphocyte # Cancelled 01/05/21 14:00 Reactive Lymphs # Cancelled 01/05/21 14:00 Total Abs Lymphocytes Cancelled 01/05/21 14:00 Monocytes # (Manual) Cancelled 01/05/21 14:00 Eosinophils # (Manual) Cancelled 01/05/21 14:00 Basophils # (Manual) Cancelled 01/05/21 14:00 Metamyelocytes # (Man) Cancelled 01/05/21 14:00 Myelocytes # (Manual) Cancelled 01/05/21 14:00 Promyelocytes # (Man) Cancelled 01/05/21 14:00 Blast Cells # (Man) Cancelled 01/05/21 14:00 Plasma Cell # (Manual) Cancelled 01/05/21 14:00 Other Cells # Cancelled 01/05/21 14:00 Nucleated RBCs # (Man) Cancelled 01/05/21 14:00 Hypersegmented Neuts Cancelled 01/05/21 14:00 Hyposegmented Neuts Cancelled 01/05/21 14:00 Hypogranular Neuts Cancelled 01/05/21 14:00 Large Granular Lymphs Cancelled 01/05/21 14:00 # Lrg Granular Lymphs Cancelled 01/05/21 14:00 Hairy Cells Cancelled 01/05/21 14:00 Smudge Cells Cancelled 01/05/21 14:00 Toxic Granulation Cancelled 01/05/21 14:00 Toxic Vacuolation Cancelled 01/05/21 14:00 Dohle Bodies Cancelled 01/05/21 14:00 Courtney Rods Cancelled 01/05/21 14:00 Platelet Estimate Cancelled 01/05/21 14:00 Hypogranular Platelets Cancelled 01/05/21 14:00 Clumped Platelets Cancelled 01/05/21 14:00 Giant Platelets Cancelled 01/05/21 14:00 Platelet Satelliting Cancelled 01/05/21 14:00 RBC Morphology Cancelled 01/05/21 14:00 Polychromasia Cancelled 01/05/21 14:00 Hypochromasia Cancelled 01/05/21 14:00 Poikilocytosis Cancelled 01/05/21 14:00 Basophilic Stippling Cancelled 01/05/21 14:00 Anisocytosis Cancelled 01/05/21 14:00 Microcytosis Cancelled 01/05/21 14:00 Macrocytosis Cancelled 01/05/21 14:00 Spherocytes Cancelled 01/05/21 14:00 Pappenheimer Bodies Cancelled 01/05/21 14:00 Sickle Cells Cancelled 01/05/21 14:00 Target Cells Cancelled 01/05/21 14:00 Tear Drop Cells Cancelled 01/05/21 14:00 Ovalocytes Cancelled 01/05/21 14:00 Stomatocytes Cancelled 01/05/21 14:00 Koch-Farrell Bodies Cancelled 01/05/21 14:00 Echinocytes Cancelled 01/05/21 14:00 Acanthocytes (Spur) Cancelled 01/05/21 14:00 Rouleaux Cancelled 01/05/21 14:00 RBC Agglutinates Cancelled 01/05/21 14:00 Schistocytes Cancelled 01/05/21 14:00 RBC Morph Comment Cancelled 01/05/21 14:00 Sezary Cell Cancelled 01/05/21 14:00 PT 11.9 Seconds (9.0-12.0) 01/05/21 14:33 INR 1.2 (0.9-1.1) H 01/05/21 14:33 APTT 25.7 Seconds (21.0-31.0) 01/05/21 14:33 PTT Ratio 1.0 01/05/21 14:33 Sodium 138 mmol/L (136-145) 01/05/21 14:00 Potassium 4.6 mmol/L (3.5-5.1) 01/05/21 14:00 Chloride 108 mmol/L (98-107) H 01/05/21 14:00 Carbon Dioxide 26 mmol/L (21-32) 01/05/21 14:00 Anion Gap 4.0 (3-11) 01/05/21 14:00 BUN 24 mg/dl (7-18) H 01/05/21 14:00 Creatinine 0.89 mg/dl (0.6-1.2) 01/05/21 14:00 Est Cr Clr Drug Dosing 34.3 ml/min 01/05/21 14:00 Est GFR ( Amer) 67.1 ml/min 01/05/21 14:00 Est GFR (Non-Af Amer) 57.9 ml/min 01/05/21 14:00 BUN/Creatinine Ratio 26.8 (10-20) H 01/05/21 14:00 Glucose 83 mg/dl (70-99) 01/05/21 14:00 Calcium 9.8 mg/dl (8.5-10.1) 01/05/21 14:00 Total Bilirubin 0.7 mg/dl (0.2-1) 01/05/21 14:00 AST 15 U/L (15-37) 01/05/21 14:00 ALT 11 U/L (12-78) L 01/05/21 14:00 Alkaline Phosphatase 131 U/L (45-117) H 01/05/21 14:00 Troponin I < 0.015 ng/ml (0-0.045) 01/05/21 14:00 Total Protein 6.7 gm/dl (6.4-8.2) 01/05/21 14:00 Albumin 3.2 gm/dl (3.4-5.0) L 01/05/21 14:00 Globulin 3.5 gm/dl (2.5-4.0) 01/05/21 14:00 Albumin/Globulin Ratio 0.9 (0.9-2) 01/05/21 14:00 POC Stool Occult Blood Negative (Negative) 01/05/21 18:02 COVID-19 Eval Order Covid19 at [facility] 01/05/21 18:30 Blood Type O Positive 01/05/21 14:10 Antibody Screen NEGATIVE 01/05/21 14:10 Impressions Abdomen/Pelvis CT 01/05/21 14:[address] WITH IV CONTRAST CT DOSE: 336.29 mGy.cm HISTORY: Generalized abdominal pain. GI bleed. TECHNIQUE: Multiaxial CT images of the abdomen and pelvis were performed following the use of intravenous contrast. A dose lowering technique was utilized adhering to the principles of ALARA. COMPARISON STUDY: None. FINDINGS: The heart is moderately enlarged. There is a small right pleural effusion. Right lower lobe posterior consolidation favors compressive atelectasis from the pleural effusion. No pneumoperitoneum. No pneumatosis. Multiple healing left lower rib fractures. Partially visualized compression deformity at T9. There are severe compression deformity is at T11, L1, and L3. These are technically age indeterminate but likely represent subacute to chronic compression deformities. There appears to be acute to subacute mild superior endplate compression deformity at L2. There are old, healed right lower rib fractures. Mild heterogeneous opacification of the liver. There are few small hypodense hepatic lesions. These favor cysts. The gallbladder is suboptimally assessed due to the motion artifact but appears unremarkable. The pancreas, spleen, adrenal glands are unremarkable. The main portal vein is patent. No hydronephrosis. Bilateral renal hypodense lesions favor cysts. No ret roperitoneal lymphadenopathy or hematoma. Moderate calcified plaque within the normal caliber abdominal aorta. 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 The bladder is unremarkable. Moderate well-formed stool seen throughout the majority colon and rectum. No dilated loops of bowel to suggest an obstruction. Extensive colonic diverticulosis. No evidence for acute diverticulitis. Mild thickening at the distal rectum/anus with mild adjacent inflammatory change. This could represent an inflammatory process or hemorrhoids. IMPRESSION: 1. Mild thickening at the distal rectum/anus with mild adjacent inflammatory change. This could represent an inflammatory process or hemorrhoids. 2. Colonic diverticulosis. No evidence for acute diverticulitis. 3. Small right pleural effusion. 4. Multiple compression deformities within the lower thoracic and lumbar spine as described above. The majority of these appear to represent subacute to chronic fractures. The L2 mild superior endplate compression deformity may be acute to subacute.. 5. Multiple healing left lower rib fractures. 6. 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 7. Additional findings as described above. ACT 112: Negative or not required by law. Electronically signed by: Mushtaq Rosenberg M.D. 01/05/2021 4:06 PM ECG Additional Comments: Atrial fibrillation, no acute ischemic changes Code Status & VTE Plan VTE Prophylaxis Plan VTE Prophylaxis will be ordered: Yes PG Care Time/CCT Total # of Minutes Spent Total Time Spent with Patient: Total time spent is greater than 50% in coordination of care (as documented) at patient's floor/unit and/or counseling patient: Coding Level of Care Code 40801 OBS Care - Level 2 Diagnoses Acute GI bleeding K92.2 Atrial fibrillation I48.20 Atrial fibrillation type: unspecified chronic Dementia F03.90 Dementia type: unspecified type Dementia behavioral disturbance: without behavioral disturbance Rib pain R07.81 Hypertension I10 Hypertension type: primary hypertension Gastroesophageal reflux disease with hiatal hernia K21.9; K44.9 (1) Atrial fibrillation Atrial fibrillation type: unspecified chronic Qualified Code(s): I48.20 - Chronic atrial fibrillation, unspecified (2) Dementia Dementia type: unspecified type Dementia behavioral disturbance: without behavioral disturbance Qualified Code(s): F03.90 - Unspecified dementia without behavioral disturbance (3) Hypertension Hypertension type: primary hypertension Qualified Code(s): I10 - Essential (primary) hypertension
[2021-01-05] MEDS ORDERED: BENZONATATE 100 MG CAPSULE PO PRN (22:42)
[2021-01-05] MEDS ORDERED: FAMOTIDINE 20 MG TAB PO SCH (22:42)
[2021-01-05] MEDS ORDERED: ONDANSETRON INJ 2 MG/ML 2 ML VIAL IV PRN (22:42)
[2021-01-05] MEDS ORDERED: LACTATED RINGER'S 1,000 ML IV SCH (23:00)
[2021-01-05] MEDS: FAMOTIDINE 20 MG in SYRINGE 3 ML IV SCH (23:48)
[2021-01-05] MEDS: MEMANTINE HCL 10 MG TAB PO SCH (23:49)
[2021-01-05] MEDS: MIRTAZAPINE TAB 15 MG TAB PO SCH (23:49)
[2021-01-05] MEDS: FERROUS SULFATE 325 MG TAB PO SCH (23:49)
[2021-01-05] MEDS: FAMOTIDINE 20 MG TAB PO SCH (23:49)
[2021-01-06] MEDS: ACETAMINOPHEN 500 MG TAB PO PRN ×3 (02:23→20:05)
--- NOTE | 2021-01-06 06:11 | Electrocardiogram Report ---
Test Reason : Blood Pressure : / mmHG Vent. Rate : 073 BPM Atrial Rate : 081 BPM P-R Int : 000 ms QRS Dur : 074 ms QT Int : 388 ms P-R-T Axes : 000 -17 034 degrees QTc Int : 427 ms Atrial fibrillation Anteroseptal infarct , age undetermined Abnormal ECG No previous ECGs available Confirmed by Ivan Cheney ([id number]) on 01/06/2021 6:10:56 AM Referred By: [facility] Confirmed By:Ivan Cehney
[2021-01-06 08:31] LABS: Basophils # (auto) 0.01 K/uL (0-0.2); Basophils % (auto) 0.2 %; Eosinophils # (auto) 0.09 K/uL (0-0.5); Eosinophils % (auto) 1.5 %; Hemoglobin 12.4 g/dL (12.0-16.0); Immature Granulocytes # (auto) 0.01 K/uL (0.00-0.02); Immature Granulocytes % (auto) 0.2 %; Lymphocytes # (auto) 0.88 K/uL (1.2-3.4); Lymphocytes % (auto) 14.8 %; Mean Corpuscular Hemoglobin 30.2 pg (25-34); Mean Corpuscular Hgb Conc 32.6 g/dL (32-36); Mean Corpuscular Volume 92.7 fL (80-100); Mean Platelet Volume 10.1 fL (7.4-10.4); Monocytes % (auto) 11.8 %; Neutrophils # (auto) 4.25 K/uL (1.4-6.5); Neutrophils % (auto) 71.5 %; Platelet Count 402 K/uL (130-400); RDW Coefficient of Variation 17.9 % (11.5-14.5); RDW Standard Deviation 60.9 fL (36.4-46.3); White Blood Count 5.94 K/uL (4.8-10.8)
[2021-01-06] MEDS: FERROUS SULFATE 325 MG TAB PO SCH ×2 (08:35→20:05)
[2021-01-06] MEDS: FAMOTIDINE 20 MG in SYRINGE 3 ML IV SCH ×2 (08:35→20:05)
[2021-01-06] MEDS: FAMOTIDINE 20 MG TAB PO SCH ×2 (08:35→20:05)
[2021-01-06] MEDS: FUROSEMIDE 20 MG TAB PO SCH (08:35)
[2021-01-06] MEDS: METOPROLOL SUCC 50MG EXT REL TAB PO SCH (08:35)
[2021-01-06] MEDS: MEMANTINE HCL 10 MG TAB PO SCH ×2 (08:35→20:05)
[2021-01-06] MEDS ORDERED: PANTOprazole 40 MG TAB PO SCH (09:00)
[2021-01-06 09:02] LABS: Albumin Level 3.2 gm/dl (3.4-5.0); BUN Creatinine Ratio 28.9 (10-20); Bilirubin Direct 0.3 mg/dl (0-0.2); Calcium 9.2 mg/dl (8.5-10.1); Creatinine Clr Calc Pharmacy 39.2 ml/min; Est GFR (African American) 78.7 ml/min; Est GFR (Non-African American) 67.9 ml/min; Potassium 3.6 mmol/L (3.5-5.1)
[2021-01-06 09:03] LABS: Bilirubin,Total 0.8 mg/dl (0.2-1); Total Protein 6.7 gm/dl (6.4-8.2)
--- NOTE | 2021-01-06 09:58 | Gastrointestinal Consultation ---
Date of Consultation January 06, 2021 Assessment & Plan (1) Heme positive stool: * Given COVID-19 positivity and hemodynamic stability. No plans for urgent endoscopy. * Increased Pantoprazole to 40 mg twice daily. * Continue Pepcid 20 mg BID. * Outpatient endoscopic evaluation in approximately 2-4 weeks if clinically indicated. * Continue supportive care. Supervising Physician Co-Signing Physician Notes I personally evaluated the patient and agree with the findings as documented byJESSE Tucker History of Present Illness Reason for Consultation: GIB Requesting Physician: Dr. Tejada Attending Physician: Max Jensen MD History of Present Illness Patient is a 89 y.o. female with a history of dementia and chronic atrial fibrillation on Eliquis for anticoagulation admitted due to melena and heme positive stool. Patient is a poor historian but denies any abdominal pain, nausea, or known melena. Per nursing, she has not had any tarry stools this morning. She remains hemodynamically stable with H&H of 12.4 and 38.0% this morning. Eliquis has been held since admission. Placed on Pepcid and Pantoprazole. Per nursing, she has been agitated this morning and has disconnected her monitor tech and pulled out her IV access. The patient reports she is having flank pain and is going for x ray this morning to evaluate for possible rib fracture. She remains on isolation for COVID-19 positivity. She is a resident of [facility]. Allergies Allergy/AdvReac Type Severity Reaction Status Date / Time No Known Drug Allergies Allergy Unknown Verified 01/05/21 15:13 Home Medications Medication Instructions Recorded Confirmed Type apixaban 2.5 mg tablet 2.5 mg PO BID 09/22/20 01/05/21 History ascorbic acid (vitamin C) 250 mg 250 mg PO BID 09/22/20 01/05/21 History tablet benzonatate 100 mg capsule 100 mg PO BID PRN 09/22/20 01/05/21 History cholecalciferol (vitamin D3) 25 25 mcg PO QAM 09/22/20 01/05/21 History mcg (1,000 unit) capsule docusate sodium 100 mg capsule 100 mg PO BID PRN 09/22/20 01/05/21 History famotidine 20 mg tablet 20 mg PO BID 09/22/20 01/05/21 History ferrous sulfate 325 mg (65 mg 325 mg PO BID 09/22/20 01/05/21 History iron) tablet furosemide 20 mg tablet 20 mg PO QAM 09/22/20 01/05/21 History memantine 10 mg tablet 10 mg PO BID 09/22/20 01/05/21 History mirtazapine 15 mg tablet 15 mg PO HS 09/22/20 01/05/21 History triamcinolone acetonide 0.1 % 1 applic TOPICAL .COMPLEX PRN 09/22/20 01/05/21 History topical cream acetaminophen 1,000 mg PO TID PRN 12/06/20 01/05/21 History food supplemt, lactose-reduced 1 ea PO DAILY 12/06/20 01/05/21 History [Ensure] metoprolol succinate 50 mg PO QAM 12/06/20 01/05/21 History potassium chloride 10 meq PO QAM 12/06/20 01/05/21 History saliva substitute combo no.9 1 ea PO TID PRN 12/06/20 01/05/21 History [Biotene Dry Mouth Oral Rinse] pantoprazole 40 mg PO DAILY 01/05/21 01/05/21 History Patient History Medical History Atrial fibrillation on Apixaban Dementia Gastroesophageal reflux disease with hiatal hernia Hypertension Insomnia Surgical History H/O: hysterectomy History of ankle surgery 1999 Social History Smoking Status: Former smoker Second Hand Exposure: No; Hx Alcohol Use: No Hx Substance Use: No Preferred Language: [place] Leonean Communication Ability: Effective Administrative Fellow Required: No Beliefs That Will Affect Care: None Current Living Situation: [facility] Feels Safe at Home: Yes Assistive Devices: None Review of Systems Review of Systems: All systems reviewed & are unremarkable except as noted in HPI & below Physical Exam Constitutional: + thin and + frail appearing Eyes: EOM intact bilaterally ENMT: Ears: no hearing impairment Neck: normal visual inspection Respiratory: normal respiratory effort, lungs clear to auscultation Cardiovascular: Rate/Rhythm: + irregularly irregular Heart Sounds: no murmur Gastrointestinal (Abdomen): normal bowel sounds, soft, nontender, no hepatosplenomegaly Musculoskeletal: Extremities: extremities normal to inspection Skin: no rashes, warm and dry Psychiatric: Orientation: alert and oriented to person Results & Data ([facility]) Vital Signs (Past 12 Hours) Vital Signs Temp Pulse Pulse Resp BP Pulse Ox 01/06/21 07:45 106 H 01/06/21 06:50 36.5 C 90 20 144/75 H 95 01/06/21 00:27 36.6 C 87 20 161/73 H 97 01/06/21 00:24 84 01/05/21 22:47 36.6 C 87 20 161/73 H 97 PG Care Time/CCT Total # of Minutes Spent Total Time Spent with Patient: Total time spent is greater than 50% in coordination of care (as documented) at patient's floor/unit and/or counseling patient: Coding Level of Care Code 07380 Initial Inpt Care Lvl 3 Diagnoses Heme positive stool R19.5
--- NOTE | 2021-01-06 12:31 | XRay Report ---
XR ribs LT min 2V w CXR1V CLINICAL HISTORY: left rib pain with palpation COMPARISON STUDY: No previous studies for comparison. FINDINGS: No pneumothorax. Small to moderate right pleural effusion is seen. Bilateral lungs are hyperinflated. Small atelectasis is seen at the left base. Aorta is calcified. Moderate cardiomegaly seen. Osseous structures: Diffuse osteopenia. Thoracolumbar scoliosis and degenerative changes of the spin e. Questionable defect within lateral aspect of the left rib ninth which might represent fracture. No other rib fractures are seen. IMPRESSION: 1. Possible fracture of the lateral aspect of the left ninth rib. 2. Small atelectasis at the left base. COPD pattern. 3. Small to moderate right pleural effusion. 4. No evidence of pneumothorax. 5. Cardiomegaly. 6. Limited exam due to diffuse osteopenia. ACT 112: Positive. There are findings on this exam that require communication between the performing entity and the patient following Patient Test Result Information Act ([place] Act 112) guidelines. The above report was generated using voice recognition software. It may contain grammatical, syntax o r spelling errors. Electronically signed by: Taty Jorgensen DO 01/06/2021 12:30 PM
[2021-01-06] MEDS ORDERED: LORazepam 0.5 MG TAB PO STA (16:27)
--- NOTE | 2021-01-06 17:43 | Hospitalist Progress Note ---
Date of Service January 06, 2021 Assessment & Plan (1) Acute GI bleedinyo female presenting from [facility] with complaint of black, tarry heme + stools. Patient on Eliquis anticoagulation for atrial fibrillation. - Hgb has been stable for us at 12.4 today. - Switch to PPI PO BID x 4-6 weeks depending on endoscopy findings. - Stop H2 yves IV - GI consult appreciated - Trend CBC tomorrow (2) Atrial fibrillation: Rate controlled atrial fibrillation. On anticoagulation with Eliquis. - Continue Metoprolol 50mg po qAM - Hold Eliquis in setting of active bleed - Telemetry monitoring as able (patient compliance an issue) (3) COVID-19: Covid-19 positive on admission (01/05). Tested negative at [place] on 01/02/2021 with PCR and negative with antigen test on 01/04/2021. - Patient denies any symptoms of Covid-19. - Given high specificity (98 - 99%) of PCR test (ie, low false positives), we are assuming this is a true positive. While she had Covid in July and is vaccinated, it is suspected that the vaccines may be less effective again asymptomatic or mild cases of delta-variant Covid. - This was discussed at length with Infection Control who are in agreement. (4) Dementia: Chronic. Patient oriented to self. Today has been somewhat confused and agitated about her isolation. - Continue Namenda - Frequent orientation, delirium prevention strategies, 1:1 sitter - Only using medication as last resort for patient and staff safety. (5) Hypertension: Blood pressure stable at present at 155/85. - Continue Metoprolol - Continue to monitor (6) Rib pain: Tenderness with palpation left rib. CXR on 01/06 shows possible left 9th rib fracture. - Tylenol PRN pain (7) DVT prophylaxis: SCDs - Heparin contra-indicated in GI bleed Admission and Anticipated Discharge Date Admission Date: January 05, 2021 Subjective Very calm and comfortable for me. Denies any issues. Reports no fevers/chills, chest pain, shortness of breath, abdominal pain, nausea, or vomiting. Physical Exam Constitutional: WD/WN, vitals as above Eyes: EOM intact bilaterally; no conjunctival abnormality ENMT: external ear and nose normal, oropharynx normal Neck: trachea midline, no thyromegaly normal visual inspection Respiratory: normal respiratory effort, lungs clear to auscultation no respiratory distress Cardiovascular: RRR, no murmur, no edema Gastrointestinal (Abdomen): Inspection/Auscultation: abdomen normal to inspection; abdomen not distended Musculoskeletal: no cyanosis or clubbing, extremities motor strength 5/5 Skin: no rashes, warm and dry Neurologic: moves all extremities and awake Psychiatric: Orientation: alert, oriented to person and cooperative; + not oriented to place and + not oriented to time Eye Contact: good eye contact Affect: euthymic affect Results & Data Results & Data ([facility]) Vital Signs (Past 12 Hours) Vital Signs Temp Pulse Pulse Resp BP Pulse Ox 01/06/21 15:09 72 01/06/21 10:57 36.7 C 76 18 154/85 H 97 01/06/21 07:45 106 H 01/06/21 06:50 36.5 C 90 20 144/75 H 95 PG Care Time/CCT Total # of Minutes Spent Total Time Spent with Patient: Total time spent is greater than 50% in coordination of care (as documented) at patient's floor/unit and/or counseling patient: Coding Level of Care Code 29141 Subseq Hosp Care Lvl 3 Diagnoses Acute GI bleeding K92.2 Atrial fibrillation I48.20 Atrial fibrillation type: unspecified chronic COVID-19 U07.1 Dementia F03.90 Dementia type: unspecified type Dementia behavioral disturbance: without behavioral disturbance Hypertension I10 Hypertension type: primary hypertension Rib pain R07.81 DVT prophylaxis Z29.9 (1) Atrial fibrillation Atrial fibrillation type: unspecified chronic Qualified Code(s): I48.20 - Chronic atrial fibrillation, unspecified (2) Dementia Dementia type: unspecified type Dementia behavioral disturbance: without behavioral disturbance Qualified Code(s): F03.90 - Unspecified dementia without behavioral disturbance (3) Hypertension Hypertension type: primary hypertension Qualified Code(s): I10 - Essential (primary) hypertension
[2021-01-06] MEDS ORDERED: OLANZapine 10 MG/2.1 ML SDV IM PRN (18:06)
[2021-01-06] MEDS ORDERED: haloperidoL 1 MG TAB PO PRN (18:06)
[2021-01-06] MEDS ORDERED: LORazepam 0.5 MG/1 ML VIAL IV PRN (18:06)
[2021-01-06] MEDS: PANTOprazole 40 MG TAB PO SCH (20:05)
[2021-01-06] MEDS: MIRTAZAPINE TAB 15 MG TAB PO SCH (20:05)
[2021-01-07 06:16] LABS: Hematocrit (blood only) 38.6 % (37-47); Hemoglobin 12.7 g/dL (12.0-16.0); Mean Corpuscular Hemoglobin 29.9 pg (25-34); Mean Corpuscular Hgb Conc 32.9 g/dL (32-36); Mean Corpuscular Volume 90.8 fL (80-100); Mean Platelet Volume 9.7 fL (7.4-10.4); Platelet Count 360 K/uL (130-400); RDW Coefficient of Variation 17.8 % (11.5-14.5); RDW Standard Deviation 59.3 fL (36.4-46.3); Red Blood Count 4.25 M/uL (4.2-5.4); White Blood Count 5.43 K/uL (4.8-10.8)
[2021-01-07 06:48] LABS: BUN Creatinine Ratio 24.2 (10-20); Calcium 9.4 mg/dl (8.5-10.1); Creatinine Clr Calc Pharmacy 31.1 ml/min; Est GFR (African American) 70.9 ml/min; Est GFR (Non-African American) 61.2 ml/min; Magnesium 2.2 mg/dl (1.8-2.4); Potassium 4.1 mmol/L (3.5-5.1)
[2021-01-07] MEDS: METOPROLOL SUCC 50MG EXT REL TAB PO SCH (09:06)
[2021-01-07] MEDS: FUROSEMIDE 20 MG TAB PO SCH (09:07)
[2021-01-07] MEDS: FAMOTIDINE 20 MG TAB PO SCH ×2 (09:07→19:53)
[2021-01-07] MEDS: MEMANTINE HCL 10 MG TAB PO SCH ×2 (09:07→19:53)
[2021-01-07] MEDS: FERROUS SULFATE 325 MG TAB PO SCH ×2 (09:07→19:53)
[2021-01-07] MEDS: PANTOprazole 40 MG TAB PO SCH ×2 (09:07→19:52)
[2021-01-07] MEDS: LORazepam 0.5 MG TAB PO PRN ×2 (10:44→19:52)
[2021-01-07] MEDS: ACETAMINOPHEN 500 MG TAB PO PRN (10:44)
--- NOTE | 2021-01-07 16:17 | Hospitalist Progress Note ---
Date of Service January 07, 2021 Assessment & Plan (1) Acute GI bleedinyo female presenting from [facility] with complaint of black, tarry heme + stools. Patient on Eliquis anticoagulation for atrial fibrillation. - Hgb has been stable for us at 12.4 today. - Switch to PPI PO BID x 4-6 weeks depending on endoscopy findings. - Stop H2 yves IV - GI consult appreciated - Trend CBC tomorrow -> Hgb stable today at 12.7. No further melenic stools reported. (2) Atrial fibrillation: Rate controlled atrial fibrillation. On anticoagulation with Eliquis. - Continue Metoprolol 50mg po qAM - Hold Eliquis in setting of active bleed - Telemetry monitoring as able (patient compliance an issue) (3) COVID-19: Covid-19 positive on admission (01/05). Tested negative at [place] on 01/02/2021 with PCR and negative with antigen test on 01/04/2021. - Patient denies any symptoms of Covid-19. - Given high specificity (98 - 99%) of PCR test (ie, low false positives), we are assuming this is a true positive. While she had Covid in July and is vaccinated, it is suspected that the vaccines may be less effective again asymptomatic or mild cases of delta-variant Covid. - This was discussed at length with Infection Control who are in agreement. -> Presently [facility] cannot take her back while Covid-positive. At this point, unsure of disposition. (4) Dementia: Chronic. Patient oriented to self. Today has been somewhat confused and agitated about her isolation. - Continue Namenda - Frequent orientation, delirium prevention strategies, 1:1 sitter - Only using medication as last resort for patient and staff safety. No need so far. (5) Hypertension: Blood pressure stable at present at 120/70. - Continue metoprolol - Continue to monitor (6) Rib pain: Tenderness with palpation left rib. CXR on 01/06 shows possible left 9th rib fracture. - Tylenol PRN pain (7) DVT prophylaxis: SCDs - Heparin contra-indicated in GI bleed Admission and Anticipated Discharge Date Admission Date: January 05, 2021 Subjective Comfortably resting today. Reports no fevers/chills, chest pain, shortness of breath, abdominal pain, nausea, or vomiting. Physical Exam Constitutional: WD/WN, vitals as above Eyes: EOM intact bilaterally; no conjunctival abnormality ENMT: external ear and nose normal, oropharynx normal Neck: trachea midline, no thyromegaly normal visual inspection Respiratory: normal respiratory effort, lungs clear to auscultation no respiratory distress Cardiovascular: RRR, no murmur, no edema Gastrointestinal (Abdomen): Inspection/Auscultation: abdomen normal to inspection; abdomen not distended Musculoskeletal: no cyanosis or clubbing, extremities motor strength 5/5 Skin: no rashes, warm and dry Neurologic: moves all extremities and awake Psychiatric: Orientation: alert, oriented to person and cooperative; + not oriented to place and + not oriented to time Eye Contact: good eye contact Affect: euthymic affect Results & Data Results & Data ([facility]) Vital Signs (Past 12 Hours) Vital Signs Temp Pulse Pulse Resp BP Pulse Ox 01/07/21 14:20 68 01/07/21 08:07 36.8 C 84 18 117/71 97 01/07/21 07:15 81 PG Care Time/CCT Total # of Minutes Spent Total Time Spent with Patient: Total time spent is greater than 50% in coordination of care (as documented) at patient's floor/unit and/or counseling patient: Coding Level of Care Code 48942 Subseq Hosp Care Lvl 2 Diagnoses Acute GI bleeding K92.2 Atrial fibrillation I48.20 Atrial fibrillation type: unspecified chronic COVID-19 U07.1 Dementia F03.90 Dementia type: unspecified type Dementia behavioral disturbance: without behavioral disturbance Hypertension I10 Hypertension type: primary hypertension Rib pain R07.81 DVT prophylaxis Z29.9 (1) Atrial fibrillation Atrial fibrillation type: unspecified chronic Qualified Code(s): I48.20 - Chronic atrial fibrillation, unspecified (2) Dementia Dementia type: unspecified type Dementia behavioral disturbance: without behavioral disturbance Qualified Code(s): F03.90 - Unspecified dementia without behavioral disturbance (3) Hypertension Hypertension type: primary hypertension Qualified Code(s): I10 - Essential (primary) hypertension
[2021-01-07] MEDS: MIRTAZAPINE TAB 15 MG TAB PO SCH (19:53)
[2021-01-08] MEDS: ACETAMINOPHEN 500 MG TAB PO PRN ×2 (09:31→17:40)
[2021-01-08] MEDS: DOCUSATE SODIUM 100 MG CAP PO PRN ×2 (09:32→20:14)
[2021-01-08] MEDS: LORazepam 0.5 MG TAB PO PRN ×2 (09:32→17:40)
[2021-01-08] MEDS: FERROUS SULFATE 325 MG TAB PO SCH ×2 (09:54→20:10)
[2021-01-08] MEDS: FAMOTIDINE 20 MG TAB PO SCH ×2 (09:54→20:12)
[2021-01-08] MEDS: METOPROLOL SUCC 50MG EXT REL TAB PO SCH (09:55)
[2021-01-08] MEDS: MEMANTINE HCL 10 MG TAB PO SCH ×2 (09:55→20:10)
[2021-01-08] MEDS: PANTOprazole 40 MG TAB PO SCH ×2 (09:55→20:12)
[2021-01-08] MEDS: FUROSEMIDE 20 MG TAB PO SCH (09:55)
--- NOTE | 2021-01-08 11:41 | Hospitalist Progress Note ---
Date of Service January 08, 2021 Assessment & Plan (1) Acute GI bleedinyo female presenting from [facility] with complaint of black, tarry heme + stools. Patient on Eliquis anticoagulation for atrial fibrillation. - Hgb has been stable for us at 12.7 yestereday. - Switched to PPI PO BID x 4-6 weeks depending on endoscopy findings. - GI consult appreciated -> Plan for EGD in 2-3 weeks after Covid isolation is done. - Trend CBC tomorrow -> Hgb stable at 12.7. No further melenic stools reported. (2) COVID-19: Covid-19 positive on admission (01/05). Tested negative at [place] on 01/02/2021 with PCR and negative with antigen test on 01/04/2021. - Patient denies any symptoms of Covid-19. - Given high specificity (98 - 99%) of PCR test (ie, low false positives), we are assuming this is a true positive. While she had Covid in July and is vaccinated, it is suspected that the vaccines may be less effective again asymptomatic or mild cases of delta-variant Covid. - This was discussed at length with Infection Control who are in agreement. -> Presently [facility] cannot take her back while Covid-positive. At this point, unsure of disposition. (3) Atrial fibrillation: Rate controlled atrial fibrillation. On anticoagulation with Eliquis. - Continue Metoprolol 50mg po qAM - Hold Eliquis in setting of active bleed - Telemetry monitoring as able (patient compliance an issue) (4) Dementia: Chronic. Patient oriented to self. Today has been somewhat confused and agitated about her isolation. - Continue Namenda & mirtazapine - Frequent orientation, delirium prevention strategies, 1:1 sitter - Only using medication as last resort for patient and staff safety. No need so far. (5) Hypertension: Blood pressure stable at present at 140/70. - Continue metoprolol & furosemide - Continue to monitor (6) Rib pain: Tenderness with palpation left rib. CXR on 01/06 shows possible left 9th rib fracture. - Tylenol PRN pain (7) DVT prophylaxis: SCDs - Heparin contraindicated in GI bleed Admission and Anticipated Discharge Date Admission Date: January 07, 2021 Subjective Comfortably resting today. Reports no fevers/chills, chest pain, shortness of breath, abdominal pain, nausea, or vomiting. Physical Exam Constitutional: WD/WN, vitals as above Eyes: EOM intact bilaterally; no conjunctival abnormality ENMT: external ear and nose normal, oropharynx normal Neck: trachea midline, no thyromegaly normal visual inspection Respiratory: normal respiratory effort, lungs clear to auscultation no respiratory distress Cardiovascular: RRR, no murmur, no edema Gastrointestinal (Abdomen): Inspection/Auscultation: abdomen normal to inspection; abdomen not distended Musculoskeletal: no cyanosis or clubbing, extremities motor strength 5/5 Skin: no rashes, warm and dry Neurologic: moves all extremities and awake Psychiatric: Orientation: alert, oriented to person and cooperative; + not oriented to place and + not oriented to time Eye Contact: good eye contact Affect: euthymic affect Results & Data Results & Data ([facility]) Vital Signs (Past 12 Hours) Vital Signs Temp Pulse Pulse Resp BP BP Pulse Ox 01/08/21 09:58 36.5 C 74 16 143/70 H 94 01/08/21 07:30 36.7 C 84 18 162/91 H 94 01/08/21 07:13 79 01/08/21 04:00 36.6 C 82 16 132/86 94 01/08/21 02:35 90 PG Care Time/CCT Total # of Minutes Spent Total Time Spent with Patient: Total time spent is greater than 50% in coordination of care (as documented) at patient's floor/unit and/or counseling patient: Coding Level of Care Code 25800 Subseq Hosp Care Lvl 2 Diagnoses Acute GI bleeding K92.2 COVID-19 U07.1 Atrial fibrillation I48.20 Atrial fibrillation type: unspecified chronic Dementia F03.90 Dementia type: unspecified type Dementia behavioral disturbance: without behavioral disturbance Hypertension I10 Hypertension type: primary hypertension Rib pain R07.81 DVT prophylaxis Z29.9 (1) Atrial fibrillation Atrial fibrillation type: unspecified chronic Qualified Code(s): I48.20 - Chronic atrial fibrillation, unspecified (2) Dementia Dementia type: unspecified type Dementia behavioral disturbance: without behavioral disturbance Qualified Code(s): F03.90 - Unspecified dementia without behavioral disturbance (3) Hypertension Hypertension type: primary hypertension Qualified Code(s): I10 - Essential (primary) hypertension
[2021-01-08] MEDS: MIRTAZAPINE TAB 15 MG TAB PO SCH (20:09)
[2021-01-09 08:30] LABS: Hematocrit (blood only) 42.6 % (37-47); Hemoglobin 13.9 g/dL (12.0-16.0); Mean Corpuscular Hemoglobin 29.7 pg (25-34); Mean Corpuscular Hgb Conc 32.6 g/dL (32-36); Mean Platelet Volume 10.4 fL (7.4-10.4); Platelet Count 350 K/uL (130-400); RDW Coefficient of Variation 17.5 % (11.5-14.5); RDW Standard Deviation 58.8 fL (36.4-46.3); Red Blood Count 4.68 M/uL (4.2-5.4); White Blood Count 6.69 K/uL (4.8-10.8)
[2021-01-09] MEDS: FAMOTIDINE 20 MG TAB PO SCH ×2 (08:48→20:16)
[2021-01-09] MEDS: MEMANTINE HCL 10 MG TAB PO SCH ×2 (08:48→20:16)
[2021-01-09] MEDS: FUROSEMIDE 20 MG TAB PO SCH (08:48)
[2021-01-09] MEDS: METOPROLOL SUCC 50MG EXT REL TAB PO SCH (08:48)
[2021-01-09] MEDS: FERROUS SULFATE 325 MG TAB PO SCH ×2 (08:48→20:16)
[2021-01-09] MEDS: PANTOprazole 40 MG TAB PO SCH ×2 (08:48→20:16)
[2021-01-09 09:02] LABS: BUN Creatinine Ratio 21.3 (10-20); Calcium 9.7 mg/dl (8.5-10.1); Creatinine Clr Calc Pharmacy 27.6 ml/min; Est GFR (African American) 64.4 ml/min; Est GFR (Non-African American) 55.6 ml/min; Magnesium 2.3 mg/dl (1.8-2.4)
[2021-01-09] MEDS: MIRTAZAPINE TAB 15 MG TAB PO SCH (20:16)
--- NOTE | 2021-01-09 21:13 | Hospitalist Progress Note ---
Date of Service January 09, 2021 Assessment & Plan (1) Acute GI bleedinyo female presenting from [facility] with complaint of black, tarry heme + stools. Patient on Eliquis anticoagulation for atrial fibrillation. - Hgb has been stable to actually improved today at 13.9 for several days - Switched to PPI PO BID x 4-6 weeks - GI consult appreciated -> Plan for EGD in 2-3 weeks after Covid isolation is done. - No further melenic stools reported. -Follow CBC in the morning -Likely okay to restart Eliquis if remains stable tomorrow (2) COVID-19: Covid-19 positive on admission (01/05). Tested negative at [place] on 01/02/2021 with PCR and negative with antigen test on 01/04/2021. - Patient denies any symptoms of Covid-19. - Given high specificity (98 - 99%) of PCR test (ie, low false positives), we are assuming this is a true positive. While she had Covid in July and is vaccinated, it is possible that she has an asymptomatic infection as the vaccinations are not sterilizing of the virus. However, this does not necessarily mean that she is contagious especially as she is completely asymptomatic. -Previous hospitalist discussed this with infection control who agreed with not retesting, however I feel that if she has an antigen test that is negative on 2 occasions, at least 24 hours apart, that would prove that she does not have a contagious infection -> Presently [facility] cannot take her back while Covid-positive. At this point, unsure of disposition. She will likely stay in this facility for 10 days (3) Atrial fibrillation: Rate controlled atrial fibrillation. On anticoagulation with Eliquis which is currently being held for GI bleeding as above. - Continue Metoprolol 50mg po qAM - Telemetry monitoring as able (patient compliance an issue)-can likely discontinue this tomorrow if rates remain stable (4) Dementia: Moderate to severe and chronic. Patient oriented to self. Has had some i ntermittent agitation - Continue Namenda & mirtazapine - Frequent orientation, delirium prevention strategies, 1:1 sitter - Only using medication as last resort for patient and staff safety. No need so far. (5) Hypertension: Blood pressure stable at present - Continue metoprolol & furosemide - Continue to monitor (6) Rib pain: Tenderness with palpation left rib. CXR on 01/06 shows possible left 9th rib fracture. - Tylenol PRN pain (7) Vertebral compression fracture: With multiple likely subacute vertebral compression fractures seen on imaging here, does not complain of pain Tylenol as needed (8) DVT prophylaxis: SCDs - Heparin contraindicated in GI bleed, holding home Eliquis Disposition-continued stay, but can likely downgrade to medical/surgical status tomorrow off telemetry. She will likely have to stay here for 10-14 days until she can return to her personal care facility when she is done with her Covid isolation Admission and Anticipated Discharge Date Admission Date: January 07, 2021 Subjective Patient very pleasantly confused. She did not realize she was in the hospital. She denies any chest pain or shortness of breath, no cough. Denies headaches or nausea. She tells me she did not eat anything but her plate of food for dinner is half eaten in front of her. She denies pain anywhere. Telemetry with atrial fibrillation with rates in the 60s to 110s Review of Systems Review of Systems: All systems reviewed & are unremarkable except as noted in HPI & below Physical Exam Constitutional: + thin and + underweight Eyes: + anicteric sclerae Neck: trachea midline, no thyromegaly Respiratory: normal respiratory effort, lungs clear to auscultation Cardiovascular: Rate/Rhythm: regular rate and + irregularly irregular Heart Sounds: no murmur Extremities: no edema Chest (Breasts): Chest: normal inspection of chest Gastrointestinal (Abdomen): normal bowel sounds, soft, nontender, no hepatosplenomegaly Musculoskeletal: Extremities: extremities normal to inspection; no cyanosis and no clubbing Skin: no rashes, warm and dry Neurologic: moves all extremities and awake; no focal motor deficits Psychiatric: Orientation: alert, oriented to person and cooperative; + not oriented to place and + not oriented to time Affect: euthymic affect Cognition: + recent memory not intact Lymphatic: no lymphedema Results & Data Results & Data ([facility]) Vital Signs (Past 12 Hours) Vital Signs Temp Pulse Resp BP Pulse Ox 01/09/21 19:52 36.5 C 92 H 18 169/83 H 96 01/09/21 15:40 36.5 C 75 18 130/76 96 01/09/21 12:07 36.4 C L 86 18 126/72 90 Laboratory Results 01/09/21 01/09/21 Range/Units 08:01 08:01 WBC 6.69 (4.8-10.8) K/uL RBC 4.68 (4.2-5.4) M/uL Hgb 13.9 (12.0-16.0) g/dL Hct 42.6 (37-47) % MCV 91.0 (80-100) fL MCH 29.7 (25-34) pg MCHC 32.6 (32-36) g/dL RDW Std Deviation 58.8 H (36.4-46.3) fL RDW Coeff of [place] 17.5 H (11.5-14.5) % Plt Count 350 (130-400) K/uL MPV 10.4 (7.4-10.4) fL Sodium 140 (136-145) mmol/L Potassium 4.0 (3.5-5.1) mmol/L Chloride 106 (98-107) mmol/L Carbon Dioxide 29 (21-32) mmol/L Anion Gap 5.0 (3-11) BUN 20 H (7-18) mg/dl Creatinine 0.92 (0.6-1.2) mg/dl Est Cr Clr Drug Dosing 27.6 ml/min Est GFR ( Amer) 64.4 ml/min Est GFR (Non-Af Amer) 55.6 ml/min BUN/Creatinine Ratio 21.3 H (10-20) Glucose 90 (70-99) mg/dl Calcium 9.7 (8.5-10.1) mg/dl Magnesium 2.3 (1.8-2.4) mg/dl PG Care Time/CCT Total # of Minutes Spent Total Time Spent with Patient: Total time spent is greater than 50% in coordination of care (as documented) at patient's floor/unit and/or counseling patient: Coding Level of Care Code 17985 Subseq Hosp Care Lvl 2 Diagnoses Acute GI bleeding K92.2 COVID-19 U07.1 Atrial fibrillation I48.20 Atrial fibrillation type: unspecified chronic Dementia F03.90 Dementia type: unspecified type Dementia behavioral disturbance: without behavioral disturbance Hypertension I10 Hypertension type: primary hypertension Rib pain R07.81 Vertebral compression fracture M48.50XA DVT prophylaxis Z29.9 (1) Atrial fibrillation Atrial fibrillation type: unspecified chronic Qualified Code(s): I48.20 - Chronic atrial fibrillation, unspecified (2) Dementia Dementia type: unspecified type Dementia behavioral disturbance: without behavioral disturbance Qualified Code(s): F03.90 - Unspecified dementia without behavioral disturbance (3) Hypertension Hypertension type: primary hypertension Qualified Code(s): I10 - Essential (primary) hypertension
[2021-01-10 07:40] LABS: Basophils # (auto) 0.02 K/uL (0-0.2); Basophils % (auto) 0.3 %; Eosinophils # (auto) 0.05 K/uL (0-0.5); Eosinophils % (auto) 0.7 %; Hemoglobin 13.7 g/dL (12.0-16.0); Immature Granulocytes # (auto) 0.01 K/uL (0.00-0.02); Immature Granulocytes % (auto) 0.1 %; Lymphocytes # (auto) 1.09 K/uL (1.2-3.4); Lymphocytes % (auto) 14.4 %; Mean Corpuscular Hemoglobin 29.9 pg (25-34); Mean Corpuscular Hgb Conc 32.6 g/dL (32-36); Mean Corpuscular Volume 91.7 fL (80-100); Mean Platelet Volume 10.3 fL (7.4-10.4); Monocytes % (auto) 13.2 %; Neutrophils # (auto) 5.42 K/uL (1.4-6.5); Neutrophils % (auto) 71.3 %; Platelet Count 315 K/uL (130-400); RDW Coefficient of Variation 17.6 % (11.5-14.5); RDW Standard Deviation 59.4 fL (36.4-46.3); Red Blood Count 4.58 M/uL (4.2-5.4); White Blood Count 7.59 K/uL (4.8-10.8)
[2021-01-10 08:21] LABS: Albumin Level 3.3 gm/dl (3.4-5.0); BUN Creatinine Ratio 24.4 (10-20); Calcium 9.5 mg/dl (8.5-10.1); Creatinine Clr Calc Pharmacy 25.4 ml/min; Est GFR (Non-African American) 50.9 ml/min; Magnesium 2.2 mg/dl (1.8-2.4); Potassium 3.7 mmol/L (3.5-5.1)
[2021-01-10 08:23] LABS: Albumin Globulin Ratio 0.9 (0.9-2); Bilirubin,Total 1.1 mg/dl (0.2-1); Globulin 3.8 gm/dl (2.5-4.0); Total Protein 7.1 gm/dl (6.4-8.2)
[2021-01-10] MEDS: METOPROLOL SUCC 50MG EXT REL TAB PO SCH (09:22)
[2021-01-10] MEDS: PANTOprazole 40 MG TAB PO SCH ×2 (09:22→21:17)
[2021-01-10] MEDS: MEMANTINE HCL 10 MG TAB PO SCH ×2 (09:24→21:17)
[2021-01-10] MEDS: FUROSEMIDE 20 MG TAB PO SCH (09:24)
[2021-01-10] MEDS: FERROUS SULFATE 325 MG TAB PO SCH ×2 (09:24→21:17)
[2021-01-10] MEDS: FAMOTIDINE 20 MG TAB PO SCH ×2 (09:24→21:17)
--- NOTE | 2021-01-10 19:18 | Hospitalist Progress Note ---
Date of Service January 10, 2021 Assessment & Plan (1) Acute GI bleedinyo female presenting from [facility] with complaint of black, tarry heme + stools. Patient on Eliquis anticoagulation for atrial fibrillation. - Hgb has been stable to actually improved today at 13.7 for many days - increased PPI PO BID x 4-6 weeks -dc home pepcid - GI consult appreciated -> Plan for EGD in 2-3 weeks after Covid isolation is done. - No further melenic stools reported. - okay to restart Eliquis today (2) COVID-19: Covid-19 positive on admission (01/05). Tested negative at [place] on 01/02/2021 with PCR and negative with antigen test on 01/04/2021. - Patient denies any symptoms of Covid-19 and here has no cough, no hypoxia, no fevers, no diarrhea/GI symptoms - Given high specificity (98 - 99%) of PCR test (ie, low false positives), we are assuming this is a true positive. While she had Covid in July and is vaccinated, it is possible that she has an asymptomatic infection as the vaccinations are not sterilizing of the virus. However, this does not necessarily mean that she is contagious especially as she is completely asymptomatic. -Previous hospitalist discussed this with infection control who agreed with not retesting, however I feel that if she has an antigen test that is negative on 2 occasions, at least 24 hours apart, that would prove that she does not have a contagious infection -COVID antigen test 01/10 negative -> Presently [place] cannot take her back while Covid-positive. They will take her back if has 2 negative COVID tests -plan to repeat COVID antigen test in the AM (3) Atrial fibrillation: Rate controlled atrial fibrillation - Continue Metoprolol 50mg po qAM -restart Eliquis today -ok to transfer off tele (4) Dementia: Moderate to severe and chronic. Patient oriented to self. Has had some intermittent agitation - Continue Namenda & mirtazapine - Frequent orientation, delirium prevention strategies - Only using medication as last resort for patient and staff safety. No need so far. (5) Hypertension: Blood pressure stable at present - Continue metoprolol & furosemide - Continue to monitor (6) Rib pain: Tenderness with palpation left rib. CXR on 01/06 shows possible left 9th rib fracture. - Tylenol PRN pain (7) Vertebral compression fracture: With multiple likely subacute vertebral compression fractures seen on imaging here, does not complain of pain Tylenol as needed (8) DVT prophylaxis: SCDs, restart home Eliquis Disposition-continued stay, but can downgrade to medical/surgical status today Dc to [facility] tomorrow if OCVID test negative Admission and Anticipated Discharge Date Admission Date: January 07, 2021 Subjective Pt has no complaints. Is confused.Has been intermittently agitated as per RN but is redirectable. Denies cough or SOB. Does tell me she is thirsty and is happy to accept a drink. She has continued to rip off her tele monitor and was trying to rip out her IV when I first went to see her. Review of Systems Review of Systems: All systems reviewed & are unremarkable except as noted in HPI & below Physical Exam Constitutional: + thin and + underweight Eyes: + anicteric sclerae Neck: trachea midline, no thyromegaly Respiratory: normal respiratory effort, lungs clear to auscultation Cardiovascular: Rate/Rhythm: regular rate and + irregularly irregular Heart Sounds: no murmur Extremities: no edema Chest (Breasts): Chest: normal inspection of chest Gastrointestinal (Abdomen): normal bowel sounds, soft, nontender, no hepatosplenomegaly Musculoskeletal: Extremities: extremities normal to inspection; no cyanosis and no clubbing Skin: no rashes, warm and dry Neurologic: moves all extremities and awake; no focal motor deficits Psychiatric: Orientation: alert, oriented to person and cooperative; + not oriented to place and + not oriented to time Affect: euthymic affect Cognition: + recent memory not intact Lymphatic: no lymphedema Results & Data Results & Data ([facility]) Vital Signs (Past 12 Hours) Vital Signs Temp Pulse Pulse Resp BP Pulse Ox 01/10/21 16:10 36.6 C 101 H 20 140/81 91 01/10/21 07:19 86 Laboratory Results 01/10/21 07:14 01/10/21 07:14 PG Care Time/CCT Total # of Minutes Spent Total Time Spent with Patient: Total time spent is greater than 50% in coordination of care (as documented) at patient's floor/unit and/or counseling patient: Coding Level of Care Code 94793 Subseq Hosp Care Lvl 1 Diagnoses Acute GI bleeding K92.2 COVID-19 U07.1 Atrial fibrillation I48.20 Atrial fibrillation type: unspecified chronic Dementia F03.90 Dementia type: unspecified type Dementia behavioral disturbance: without behavioral disturbance Hypertension I10 Hypertension type: primary hypertension Rib pain R07.81 Vertebral compression fracture M48.50XA DVT prophylaxis Z29.9 (1) Atrial fibrillation Atrial fibrillation type: unspecified chronic Qualified Code(s): I48.20 - Chronic atrial fibrillation, unspecified (2) Dementia Dementia type: unspecified type Dementia behavioral disturbance: without behavioral disturbance Qualified Code(s): F03.90 - Unspecified dementia without behavioral disturbance (3) Hypertension Hypertension type: primary hypertension Qualified Code(s): I10 - Essential (primary) hypertension
[2021-01-10] MEDS: APIXABAN 2.5 MG TAB PO SCH (21:16)
[2021-01-10] MEDS: MIRTAZAPINE TAB 15 MG TAB PO SCH (21:17)
[2021-01-11] MEDS: MEMANTINE HCL 10 MG TAB PO SCH ×2 (08:05→20:05)
[2021-01-11] MEDS: APIXABAN 2.5 MG TAB PO SCH ×2 (08:05→20:05)
[2021-01-11] MEDS: FAMOTIDINE 20 MG TAB PO SCH ×2 (08:06→20:05)
[2021-01-11] MEDS: PANTOprazole 40 MG TAB PO SCH ×2 (08:06→20:05)
[2021-01-11] MEDS: POTASSIUM CHLORIDE 10 MEQ TABCR PO SCH (08:06)
[2021-01-11] MEDS: FUROSEMIDE 20 MG TAB PO SCH (08:06)
[2021-01-11] MEDS: FERROUS SULFATE 325 MG TAB PO SCH ×2 (08:06→20:05)
[2021-01-11] MEDS: METOPROLOL SUCC 50MG EXT REL TAB PO SCH (08:06)
--- NOTE | 2021-01-11 18:55 | Hospitalist Progress Note ---
Date of Service January 11, 2021 Assessment & Plan (1) Acute GI bleeding: Plan: Acute GI bleedinyo female presenting from [facility] with complaint of black, tarry heme + stools. Patient on Eliquis anticoagulation for atrial fibrillation. - Hgb has been stable to actually improved at 13.7 for many days - increased PPI PO BID x 4-6 weeks -dc home pepcid - GI consult appreciated -> Plan for EGD in 2-3 weeks after Covid isolation is done. - No further melenic stools reported. - okay to restart Eliquis on 01/10 (2) COVID-19: Covid-19 positive on admission (01/05). Tested negative at [place] on 01/02/2021 with PCR and negative with antigen test on 01/04/2021. - Patient denies any symptoms of Covid-19 and here has no cough, no hypoxia, no fevers, no diarrhea/GI symptoms - Given high specificity (98 - 99%) of PCR test (ie, low false positives), we are assuming this is a true positive. While she had Covid in July and is vaccinated, it is possible that she has an asymptomatic infection as the vaccinations are not sterilizing of the virus. However, this does not necessarily mean that she is contagious especially as she is completely asymptomatic. -Previous hospitalist discussed this with infection control who agreed with not retesting, however I feel that if she has an antigen test that is negative on 2 occasions, at least 24 hours apart, that would prove that she does not have a contagious infection -COVID antigen test 01/10 and 01/11 negative, however Infection Control here requested a PCR test and still positive unfortunately -> Presently [facility] cannot take her back while Covid-positive. She will have to remain here until 01/[address] [facility] does not have provisions for some reason to keep someone isolated with COVID in the midst of a pandemic. (3) Atrial fibrillation: Rate controlled atrial fibrillation - Continue Metoprolol 50mg po qAM -continue Eliquis today (4) Dementia: Moderate to severe and chronic. Patient oriented to self. Has had some intermittent agitation - Continue Namenda & mirtazapine - Frequent orientation, delirium prevention strategies - Only using medication as last resort for patient and staff safety. No need so far. (5) Hypertension: Blood pressure stable at present - Continue metoprolol & furosemide - Continue to monitor (6) Rib pain: Tenderness with palpation left rib. CXR on 01/06 shows possible left 9th rib fracture. - Tylenol PRN pain (7) Vertebral compression fracture: With multiple likely subacute vertebral compression fractures seen on imaging here, does not complain of pain Tylenol as needed (8) DVT prophylaxis: SCDs, Eliquis Disposition-continued stay Dc to [facility] on Monday 01/15 when COVID isolation precautions can be removed Discussed her care with her son on the phone (2) COVID-19: (3) Atrial fibrillation: (4) Dementia: (5) Hypertension: (6) Rib pain: (7) Vertebral compression fracture: (8) DVT prophylaxis: Admission and Anticipated Discharge Date Admission Date: January 07, 2021 Subjective Pt has no complaints. She asked for something to eat and I fed her some peaches and mashed potatoes. No pain, no cough, no SOB. Review of Systems Review of Systems: All systems reviewed & are unremarkable except as noted in HPI & below Physical Exam Constitutional: + thin and + underweight Eyes: + anicteric sclerae Neck: trachea midline, no thyromegaly Respiratory: normal respiratory effort, lungs clear to auscultation Cardiovascular: Rate/Rhythm: regular rate and + irregularly irregular Heart Sounds: no murmur Extremities: no edema Chest (Breasts): Chest: normal inspection of chest Gastrointestinal (Abdomen): normal bowel sounds, soft, nontender, no hepatosplenomegaly Musculoskeletal: Extremities: extremities normal to inspection; no cyanosis and no clubbing Skin: no rashes, warm and dry Neurologic: moves all extremities and awake; no focal motor deficits Psychiatric: Orientation: alert, oriented to person and cooperative; + not oriented to place and + not oriented to time Affect: euthymic affect Cognition: + recent memory not intact Lymphatic: no lymphedema Results & Data Results & Data ([facility]) Vital Signs (Past 12 Hours) Vital Signs Temp Pulse Resp BP BP Pulse Ox 01/11/21 12:28 36.2 C L 88 16 117/74 93 01/11/21 08:04 36.4 C L 96 H 18 117/45 L 92 Laboratory Results 01/11/21 01/11/21 01/11/21 Range/Units 10:43 10:43 08:00 COVID-19 Eval Order Covid19 at [facility] [place] SARS-CoV-2 (PCR) POSITIVE A* (Negative) SARS-CoV-2, RNA, NAAT NEGATIVE (NEGATIVE) 01/11/21 Range/Units 08:00 COVID-19 Eval Order Covid19 [facility] SARS-CoV-2 (PCR) (Negative) SARS-CoV-2, RNA, NAAT (NEGATIVE) PG Care Time/CCT Total # of Minutes Spent Total Time Spent with Patient: Total time spent is greater than 50% in coordination of care (as documented) at patient's floor/unit and/or counseling patient: Coding Level of Care Code 36378 Subseq Hosp Care Lvl 1 Diagnoses Acute GI bleeding K92.2 COVID-19 U07.1 Atrial fibrillation I48.20 Atrial fibrillation type: unspecified chronic Dementia F03.90 Dementia type: unspecified type Dementia behavioral disturbance: without behavioral disturbance Hypertension I10 Hypertension type: primary hypertension Rib pain R07.81 Vertebral compression fracture M48.50XA DVT prophylaxis Z29.9 (1) Atrial fibrillation Atrial fibrillation type: unspecified chronic Qualified Code(s): I48.20 - Chronic atrial fibrillation, unspecified (2) Dementia Dementia type: unspecified type Dementia behavioral disturbance: without behavioral disturbance Qualified Code(s): F03.90 - Unspecified dementia without behavioral disturbance (3) Hypertension Hypertension type: primary hypertension Qualified Code(s): I10 - Essential (primary) hypertension
[2021-01-11] MEDS: MIRTAZAPINE TAB 15 MG TAB PO SCH (20:05)
[2021-01-12] MEDS: FAMOTIDINE 20 MG TAB PO SCH ×2 (09:15→20:33)
[2021-01-12] MEDS: APIXABAN 2.5 MG TAB PO SCH ×2 (09:15→20:31)
[2021-01-12] MEDS: MEMANTINE HCL 10 MG TAB PO SCH ×2 (09:16→20:31)
[2021-01-12] MEDS: FUROSEMIDE 20 MG TAB PO SCH (09:17)
[2021-01-12] MEDS: PANTOprazole 40 MG TAB PO SCH ×2 (09:17→20:31)
[2021-01-12] MEDS: METOPROLOL SUCC 50MG EXT REL TAB PO SCH (09:17)
[2021-01-12] MEDS: POTASSIUM CHLORIDE 10 MEQ TABCR PO SCH (09:23)
[2021-01-12] MEDS: FERROUS SULFATE 325 MG TAB PO SCH ×2 (09:23→20:32)
[2021-01-12] MEDS: DOCUSATE SODIUM 100 MG CAP PO PRN (17:12)
[2021-01-12] MEDS: DOCUSATE SODIUM/SENNA 50/8.6MG TAB PO SCH (17:12)
--- NOTE | 2021-01-12 19:03 | Hospitalist Progress Note ---
Date of Service January 12, 2021 Assessment & Plan (1) Acute GI bleeding: Plan: Acute GI bleedinyo female presenting from [facility] with complaint of black, tarry heme + stools. Patient on Eliquis anticoagulation for atrial fibrillation. - Hgb has been stable to actually improved at 13.7 for many days - increased PPI PO BID x 4-6 weeks -dc home pepcid - GI consult appreciated -> Plan for EGD in 2-3 weeks after Covid isolation is done. - No further melenic stools reported. - okay to restart Eliquis on 01/10 (2) COVID-19: Covid-19 positive on admission (01/05). Tested negative at [place] on 01/02/2021 with PCR and negative with antigen test on 01/04/2021. - Patient denies any symptoms of Covid-19 and here has no cough, no hypoxia, no fevers, no diarrhea/GI symptoms - Given high specificity (98 - 99%) of PCR test (ie, low false positives), we are assuming this is a true positive. While she had Covid in July and is vaccinated, it is possible that she has an asymptomatic infection as the vaccinations are not sterilizing of the virus. However, this does not necessarily mean that she is contagious especially as she is completely asymptomatic. -Previous hospitalist discussed this with infection control who agreed with not retesting, however I feel that if she has an antigen test that is negative on 2 occasions, at least 24 hours apart, that would prove that she does not have a contagious infection -COVID antigen test 01/10 and 01/11 negative, however Infection Control here requested a PCR test and still positive unfortunately -> Presently [place] cannot take her back while Covid-positive. She will have to remain here until 01/15 because [facility] does not have provisions for some reason to keep someone isolated with COVID in the midst of a pandemic. (3) Atrial fibrillation: Rate controlled atrial fibrillation - Continue Metoprolol 50mg po qAM -continue Eliquis (4) Dementia: Moderate to severe and chronic. Patient oriented to self. Has had some intermittent agitation - Continue Namenda & mirtazapine - Frequent orientation, delirium prevention strategies - Only using medication as last resort for patient and staff safety. No need so far. (5) Hypertension: Blood pressure stable at present - Continue metoprolol & furosemide - Continue to monitor (6) Rib pain: Tenderness with palpation left rib. CXR on 01/06 shows possible left 9th rib fracture. - Tylenol PRN pain (7) Vertebral compression fracture: With multiple likely subacute vertebral compression fractures seen on imaging here, does not complain of pain Tylenol as needed (8) DVT prophylaxis: SCDs, Eliquis Disposition-continued stay Dc to [facility] on Monday 01/15 when COVID isolation precautions can be removed (2) COVID-19: (3) Atrial fibrillation: (4) Dementia: (5) Hypertension: (6) Rib pain: (7) Vertebral compression fracture: (8) DVT prophylaxis: Admission and Anticipated Discharge Date Admission Date: January 07, 2021 Subjective Patient had just fallen asleep apparently when I went in and I did not wake her. Nursing reports that she has not had a bowel movement now in a week. She is not eating much-asked nurse to ensure that someone is helping to feed her. No other acute issues today Review of Systems Review of Systems: Unobtainable due to cognitive status Physical Exam Constitutional: + thin and + underweight Neck: trachea midline, no thyromegaly Respiratory: normal respiratory effort Cardiovascular: Extremities: no edema Chest (Breasts): Chest: normal inspection of chest Musculoskeletal: Extremities: extremities normal to inspection; no cyanosis and no clubbing Skin: no rashes, warm and dry Neurologic: + not awake Lymphatic: no lymphedema PG Care Time/CCT Total # of Minutes Spent Total Time Spent with Patient: Total time spent is greater than 50% in coordination of care (as documented) at patient's floor/unit and/or counseling patient: Coding Level of Care Code 50802 Subseq Hosp Care Lvl 1 Diagnoses Acute GI bleeding K92.2 COVID-19 U07.1 Atrial fibrillation I48.20 Atrial fibrillation type: unspecified chronic Dementia F03.90 Dementia behavioral disturbance: without behavioral disturbance Dementia type: unspecified type Hypertension I10 Hypertension type: primary hypertension Rib pain R07.81 Vertebral compression fracture M48.50XA DVT prophylaxis Z29.9 (1) Atrial fibrillation Atrial fibrillation type: unspecified chronic Qualified Code(s): I48.20 - Chronic atrial fibrillation, unspecified (2) Dementia Dementia behavioral disturbance: without behavioral disturbance Dementia type: unspecified type Qualified Code(s): F03.90 - Unspecified dementia without behavioral disturbance (3) Hypertension Hypertension type: primary hypertension Qualified Code(s): I10 - Essential (primary) hypertension
[2021-01-12] MEDS: MIRTAZAPINE TAB 15 MG TAB PO SCH (20:31)
[2021-01-13] MEDS: FAMOTIDINE 20 MG TAB PO SCH ×2 (08:57→20:30)
[2021-01-13] MEDS: PANTOprazole 40 MG TAB PO SCH ×2 (08:57→20:30)
[2021-01-13] MEDS: APIXABAN 2.5 MG TAB PO SCH ×2 (08:58→20:30)
[2021-01-13] MEDS: DOCUSATE SODIUM/SENNA 50/8.6MG TAB PO SCH ×2 (08:58→20:30)
[2021-01-13] MEDS: MEMANTINE HCL 10 MG TAB PO SCH ×2 (08:58→20:30)
[2021-01-13] MEDS: FUROSEMIDE 20 MG TAB PO SCH (08:59)
[2021-01-13] MEDS: FERROUS SULFATE 325 MG TAB PO SCH ×2 (08:59→20:30)
[2021-01-13] MEDS: METOPROLOL SUCC 50MG EXT REL TAB PO SCH (09:00)
[2021-01-13] MEDS: POTASSIUM CHLORIDE 10 MEQ TABCR PO SCH (09:01)
--- NOTE | 2021-01-13 15:26 | Hospitalist Progress Note ---
Date of Service January 13, 2021 Assessment & Plan (1) Acute GI bleeding: Plan: Acute GI bleedinyo female presenting from [facility] with complaint of black, tarry heme + stools. Patient on Eliquis anticoagulation for atrial fibrillation. - Hgb has been stable to actually improved at 13.7 for many days - increased PPI PO BID x 4-6 weeks -dc home pepcid - GI consult appreciated -> Plan for EGD in 2-3 weeks after Covid isolation is done. - No further melenic stools reported. - restarted Eliquis on 01/10 (2) COVID-19: Covid-19 positive on admission (01/05). Tested negative at [place] on 01/02/2021 with PCR and negative with antigen test on 01/04/2021. - Patient denies any symptoms of Covid-19 and here has no cough, no hypoxia, no fevers, no diarrhea/GI symptoms - Given high specificity (98 - 99%) of PCR test (ie, low false positives), we ar e assuming this is a true positive. While she had Covid in July and is vaccinated, it is possible that she has an asymptomatic infection as the vaccinations are not sterilizing of the virus. However, this does not necessarily mean that she is contagious especially as she is completely asymptomatic. -Previous hospitalist discussed this with infection control who agreed with not retesting, however I feel that if she has an antigen test that is negative on 2 occasions, at least 24 hours apart, that would prove that she does not have a contagious infection -COVID antigen test 01/10 and 01/11 negative, however Infection Control here requested a PCR test and still positive unfortunately -> Presently [place] cannot take her back while Covid-positive. She will have to remain here until 01/15 because [facility] does not have provisions for some reason to keep someone isolated with COVID in the midst of a pandemic. (3) Atrial fibrillation: Rate controlled atrial fibrillation - Continue Metoprolol 50mg po qAM -continue Eliquis (4) Dementia: Moderate to severe and chronic. Patient oriented to self. Has had some intermittent agitation - Continue Namenda & mirtazapine - Frequent orientation, delirium prevention strategies - Only using medication as last resort for patient and staff safety. No need so far. (5) Hypertension: Blood pressure mildly elevated - Continue metoprolol & furosemide - Continue to monitor (6) Rib pain: Tenderness with palpation left rib. CXR on 01/06 shows possible left 9th rib fracture. - Tylenol PRN pain -add voltaren gel (7) Vertebral compression fracture: With multiple likely subacute vertebral compression fractures seen on imaging here, does not complain of pain Tylenol as needed Consitpation-add senna/docusate and increase to bid, add bisacodyl AL daily prn (8) DVT prophylaxis: SCDs, Eliquis Disposition-continued stay Dc to [facility] on Monday 01/15 when COVID isolation precautions can be bahman steve (2) COVID-19: (3) Atrial fibrillation: (4) Dementia: (5) Hypertension: (6) Rib pain: (7) Vertebral compression fracture: (8) DVT prophylaxis: Admission and Anticipated Discharge Date Admission Date: January 07, 2021 Subjective no new issues, pleasantly confused, denies pain. Won't eat food fo rme today but likes the Boost. Review of Systems Review of Systems: All systems reviewed & are unremarkable except as noted in HPI & below Physical Exam Constitutional: + thin and + underweight Eyes: + anicteric sclerae Neck: trachea midline, no thyromegaly Respiratory: normal respiratory effort, lungs clear to auscultation normal respiratory effort Cardiovascular: Rate/Rhythm: regular rate and + irregularly irregular Heart Sounds: no murmur Extremities: no edema Chest (Breasts): Chest: normal inspection of chest Gastrointestinal (Abdomen): normal bowel sounds, soft, nontender, no hepatosplenomegaly Musculoskeletal: Extremities: extremities normal to inspection; no cyanosis and no clubbing Skin: no rashes, warm and dry Neurologic: + not awake Psychiatric: Orientation: alert, oriented to person and cooperative; + not oriented to place and + not oriented to time Affect: euthymic affect Cognition: + recent memory not intact Lymphatic: no lymphedema PG Care Time/CCT Total # of Minutes Spent Total Time Spent with Patient: Total time spent is greater than 50% in coordination of care (as documented) at patient's floor/unit and/or counseling patient: Coding Level of Care Code 51417 Subseq Hosp Care Lvl 1 Diagnoses Acute GI bleeding K92.2 COVID-19 U07.1 Atrial fibrillation I48.20 Atrial fibrillation type: unspecified chronic Dementia F03.90 Dementia behavioral disturbance: without behavioral disturbance Dementia type: unspecified type Hypertension I10 Hypertension type: primary hypertension Rib pain R07.81 Vertebral compression fracture M48.50XA DVT prophylaxis Z29.9 (1) Atrial fibrillation Atrial fibrillation type: unspecified chronic Qualified Code(s): I48.20 - Chronic atrial fibrillation, unspecified (2) Dementia Dementia behavioral disturbance: without behavioral disturbance Dementia type: unspecified type Qualified Code(s): F03.90 - Unspecified dementia without behavioral disturbance (3) Hypertension Hypertension type: primary hypertension Qualified Code(s): I10 - Essential (primary) hypertension
[2021-01-13] MEDS ORDERED: bisacodyL 10 MG SUPP PR PRN (17:26)
[2021-01-13] MEDS: MIRTAZAPINE TAB 15 MG TAB PO SCH (20:30)
[2021-01-13] MEDS: DICLOFENAC SOD 1% GEL 100 GM TUBE EXT SCH (20:31)
[2021-01-14] MEDS: POTASSIUM CHLORIDE 10 MEQ TABCR PO SCH (09:09)
[2021-01-14] MEDS: FAMOTIDINE 20 MG TAB PO SCH ×2 (09:10→21:41)
[2021-01-14] MEDS: MEMANTINE HCL 10 MG TAB PO SCH ×2 (09:10→21:41)
[2021-01-14] MEDS: PANTOprazole 40 MG TAB PO SCH ×2 (09:10→21:41)
[2021-01-14] MEDS: APIXABAN 2.5 MG TAB PO SCH ×2 (09:10→21:41)
[2021-01-14] MEDS: FUROSEMIDE 20 MG TAB PO SCH (09:11)
[2021-01-14] MEDS: FERROUS SULFATE 325 MG TAB PO SCH ×2 (09:11→21:41)
[2021-01-14] MEDS: METOPROLOL SUCC 50MG EXT REL TAB PO SCH (09:12)
[2021-01-14] MEDS: DOCUSATE SODIUM/SENNA 50/8.6MG TAB PO SCH ×2 (09:13→21:41)
[2021-01-14] MEDS: DICLOFENAC SOD 1% GEL 100 GM TUBE EXT SCH ×4 (09:13→21:41)
--- NOTE | 2021-01-14 18:28 | Hospitalist Progress Note ---
Date of Service January 14, 2021 Assessment & Plan (1) Acute GI bleeding: Plan: Acute GI bleedinyo female presenting from [facility] with complaint of black, tarry heme + stools. Patient on Eliquis anticoagulation for atrial fibrillation. - Hgb was stable to actually improved at 13.7 for many days - increased PPI PO BID x 4-6 weeks -dcd home pepcid - GI consult appreciated -> Plan for EGD in 2-3 weeks after Covid isolation is done. - No further melenic stools reported. - restarted Eliquis on 01/10 -No need to recheck CBC unless has obvious bleeding -Has not had a bowel movement in many days (2) COVID-19: Plan: Covid-19 positive on admission (01/05). Tested negative at [facility] on 01/02/2021 with PCR and negative with antigen test on 01/04/2021. - Patient denies any symptoms of Covid-19 and here has no cough, no hypoxia, no fevers, no diarrhea/GI symptoms - Given high specificity (98 - 99%) of PCR test (ie, low false positives), we are assuming this is a true positive. While she had Covid in July and is vaccinated, it is possible that she has an asymptomatic infection as the vaccinations are not sterilizing of the virus. However, this does not necessarily mean that she is contagious especially as she is completely asymptomatic. -Previous hospitalist discussed this with infection control who agreed with not retesting, however I feel that if she has an antigen test that is negative on 2 occasions, at least 24 hours apart, that would prove that she does not have a contagious infection -COVID antigen test 01/10 and 01/11 negative, however Infection Control here requested a PCR test and still positive unfortunately on 01/11 -> Presently [facility] cannot take her back while Covid-positive. She will have to remain here until 01/18 because [facility] does not have provisions for some reason to keep someone isolated with COVID in the midst of a pandemic. They are requiring a 14-day quarantine before she can return there. (3) Atrial fibrillation: Plan: Rate controlled atrial fibrillation - Continue Metoprolol 50mg po qAM -continue Eliquis (4) Dementia: Plan: Moderate to severe and chronic. Patient oriented to self. Has had some intermittent agitation - Continue Namenda & mirtazapine - Frequent orientation, delirium prevention strategies - Only using medication as last resort for patient and staff safety. No need so far. (5) Hypertension: Plan: Blood pressure mildly elevated at times - Continue metoprolol & furosemide - Continue to monitor (6) Rib pain: Plan: Tenderness with palpation left rib. CXR on 01/06 shows possible left 9th rib fracture. - Tylenol PRN pain -add voltaren gel (7) Vertebral compression fracture: Plan: With multiple likely subacute vertebral compression fractures seen on imaging here, does not complain of pain Tylenol as needed (8) DVT prophylaxis: Plan: Constipation-continue senna/docusate bid, continue bisacodyl [place] daily prn (8) DVT prophylaxis: SCDs, Eliquis Disposition-continued stay Dc to [facility] on 01/18 as per case management discussion with [facility]-they require 14 days from the time of first positive Covid test However, patient's Covid precautions can be discontinued here starting 01/16 as per [facility] policy Admission and Anticipated Discharge Date Admission Date: January 07, 2021 Subjective Patient has no complaints. She does not know if she had a bowel movement. She is pleasantly confused. She ate about a third of her dinner in front of her but she loves to drink her boost as per nursing. Review of Systems Review of Systems: All systems reviewed & are unremarkable except as noted in HPI & below Physical Exam Constitutional: + thin and + underweight Eyes: + anicteric sclerae Neck: trachea midline, no thyromegaly Respiratory: normal respiratory effort, lungs clear to auscultation normal respiratory effort Cardiovascular: Rate/Rhythm: regular rate and + irregularly irregular Heart Sounds: no murmur Extremities: no edema Chest (Breasts): Chest: normal inspection of chest Gastrointestinal (Abdomen): normal bowel sounds, soft, nontender, no hepatosplenomegaly Musculoskeletal: Extremities: extremities normal to inspection; no cyanosis and no clubbing Skin: no rashes, warm and dry Psychiatric: Orientation: alert, oriented to person and cooperative; + not oriented to place and + not oriented to time Affect: euthymic affect Cognition: + recent memory not intact Lymphatic: no lymphedema Results & Data Results & Data ([facility]) Vital Signs (Past 12 Hours) Vital Signs Temp Pulse Resp BP Pulse Ox 01/14/21 09:07 36.9 C 92 H 20 125/80 95 PG Care Time/CCT Total # of Minutes Spent Total Time Spent with Patient: Total time spent is greater than 50% in coordination of care (as documented) at patient's floor/unit and/or counseling patient: Coding Level of Care Code 62573 Subseq Hosp Care Lvl 1 Diagnoses Acute GI bleeding K92.2 COVID-19 U07.1 Atrial fibrillation I48.20 Atrial fibrillation type: unspecified chronic Dementia F03.90 Dementia type: unspecified type Dementia behavioral disturbance: without behavioral disturbance Hypertension I10 Hypertension type: primary hypertension Rib pain R07.81 Vertebral compression fracture M48.50XA DVT prophylaxis Z29.9 (1) Atrial fibrillation Atrial fibrillation type: unspecified chronic Qualified Code(s): I48.20 - Chronic atrial fibrillation, unspecified (2) Dementia Dementia type: unspecified type Dementia behavioral disturbance: without behavioral disturbance Qualified Code(s): F03.90 - Unspecified dementia without behavioral disturbance (3) Hypertension Hypertension type: primary hypertension Qualified Code(s): I10 - Essential (primary) hypertension
[2021-01-14] MEDS: MIRTAZAPINE TAB 15 MG TAB PO SCH (21:41)
[2021-01-15] MEDS: DOCUSATE SODIUM/SENNA 50/8.6MG TAB PO SCH ×2 (10:48→20:24)
[2021-01-15] MEDS: DICLOFENAC SOD 1% GEL 100 GM TUBE EXT SCH ×4 (10:51→20:25)
[2021-01-15] MEDS: FAMOTIDINE 20 MG TAB PO SCH ×2 (10:52→20:24)
[2021-01-15] MEDS: FERROUS SULFATE 325 MG TAB PO SCH ×2 (10:52→20:24)
[2021-01-15] MEDS: METOPROLOL SUCC 50MG EXT REL TAB PO SCH (10:53)
[2021-01-15] MEDS: PANTOprazole 40 MG TAB PO SCH ×2 (10:53→20:24)
[2021-01-15] MEDS: POTASSIUM CHLORIDE 10 MEQ TABCR PO SCH (10:54)
[2021-01-15] MEDS: FUROSEMIDE 20 MG TAB PO SCH (10:55)
[2021-01-15] MEDS: MEMANTINE HCL 10 MG TAB PO SCH ×2 (10:55→20:24)
[2021-01-15] MEDS: APIXABAN 2.5 MG TAB PO SCH ×2 (10:56→20:24)
--- NOTE | 2021-01-15 16:04 | Hospitalist Progress Note ---
Date of Service January 15, 2021 Assessment & Plan (1) Acute GI bleeding: Plan: Acute GI bleedinyo female presenting from [facility] with complaint of black, tarry heme + stools. Patient on Eliquis anticoagulation for atrial fibrillation. - Hgb was stable to actually improved at 13.7 for many days - increased PPI PO BID x 4-6 weeks -dcd home pepcid - GI consult appreciated -> Plan for EGD in 2-3 weeks after Covid isolation is done. - No further melenic stools reported. - restarted Eliquis on 01/10 -No need to recheck CBC unless has obvious bleeding -no bowel movement in many days until finally on 01/15-no melena (2) COVID-19: Plan: Covid-19 positive on admission (01/05). Tested negative at [facility] on 01/02/2021 with PCR and negative with antigen test on 01/04/2021. - Patient denies any symptoms of Covid-19 and here has no cough, no hypoxia, no fevers, no diarrhea/GI symptoms - Given high specificity (98 - 99%) of PCR test (ie, low false positives), we are assuming this is a true positive. While she had Covid in July and is vaccinated, it is possible that she has an asymptomatic infection as the vaccinations are not sterilizing of the virus. However, this does not necessarily mean that she is contagious especially as she is completely asymptomatic. -Previous hospitalist discussed this with infection control who agreed with not retesting, however I feel that if she has an antigen test that is negative on 2 occasions, at least 24 hours apart, that would prove that she does not have a contagious infection -COVID antigen test 01/10 and 01/11 negative, however Infection Control here requested a PCR test and still positive unfortunately on 01/11 -> Presently [facility] cannot take her back while Covid-positive. She will have to remain here until 01/18 because [facility] does not have provisions for some reason to keep someone isolated with COVID in the midst of a pandemic. They are requiring a 14-day quarantine before she can return there. (3) Atrial fibrillation: Plan: Rate controlled atrial fibrillation - Continue Metoprolol 50mg po qAM -continue Eliquis (4) Dementia: Plan: Moderate to severe and chronic. Patient oriented to self. Has had some intermittent agitation - Continue Namenda & mirtazapine - Frequent orientation, delirium prevention strategies - Only using medication as last resort for patient and staff safety. No need so far. (5) Hypertension: Plan: Blood pressure mildly elevated at times - Continue metoprolol & furosemide - Continue to monitor (6) Rib pain: Plan: Tenderness with palpation left rib. CXR on 01/06 shows possible left 9th rib fracture. - Tylenol PRN pain -continue voltaren gel (7) Vertebral compression fracture: Plan: With multiple likely subacute vertebral compression fractures seen on imaging here, does not complain of pain Tylenol as needed (8) DVT prophylaxis: Plan: Constipation-continue senna/docusate bid, continue bisacodyl [place] daily prn, finally did have a BM on 01/15 (8) DVT prophylaxis: SCDs, Eliquis Disposition-continued stay Dc to [facility] on 01/18 as per case management discussion with [facility]-they require 14 days from the time of first positive Covid test However, patient's Covid precautions can be discontinued here starting 01/16 as per [facility] policy Admission and Anticipated Discharge Date Admission Date: January 07, 2021 Subjective Patient has no complaints. Remains pleasantly confused. only drinking Boost, not eating much. Seems happy Review of Systems Review of Systems: All systems reviewed & are unremarkable except as noted in HPI & below Physical Exam Constitutional: + thin and + underweight Eyes: + anicteric sclerae Neck: trachea midline, no thyromegaly Respiratory: normal respiratory effort, lungs clear to auscultation normal respiratory effort Cardiovascular: Rate/Rhythm: regular rate and + irregularly irregular Heart Sounds: no murmur Extremities: no edema Chest (Breasts): Chest: normal inspection of chest Gastrointestinal (Abdomen): normal bowel sounds, soft, nontender, no hepatosplenomegaly Musculoskeletal: Extremities: extremities normal to inspection; no cyanosis and no clubbing Skin: no rashes, warm and dry Neurologic: + not awake Psychiatric: Orientation: alert, oriented to person and cooperative; + not oriented to place and + not oriented to time Affect: euthymic affect Cognition: + recent memory not intact Lymphatic: no lymphedema Results & Data Results & Data ([facility]) Vital Signs (Past 12 Hours) Vital Signs Temp Pulse Resp BP BP Pulse Ox 01/15/21 11:09 36.7 C 110 H 20 115/67 96 01/15/21 08:40 36.3 C L 100 H 18 113/66 93 PG Care Time/CCT Total # of Minutes Spent Total Time Spent with Patient: Total time spent is greater than 50% in coordination of care (as documented) at patient's floor/unit and/or counseling patient: Coding Level of Care Code 76871 Subseq Hosp Care Lvl 1 Diagnoses Acute GI bleeding K92.2 COVID-19 U07.1 Atrial fibrillation I48.20 Atrial fibrillation type: unspecified chronic Dementia F03.90 Dementia behavioral disturbance: without behavioral disturbance Dementia type: unspecified type Hypertension I10 Hypertension type: primary hypertension Rib pain R07.81 Vertebral compression fracture M48.50XA DVT prophylaxis Z29.9 (1) Atrial fibrillation Atrial fibrillation type: unspecified chronic Qualified Code(s): I48.20 - Chronic atrial fibrillation, unspecified (2) Dementia Dementia behavioral disturbance: without behavioral disturbance Dementia type: unspecified type Qualified Code(s): F03.90 - Unspecified dementia without behavioral disturbance (3) Hypertension Hypertension type: primary hypertension Qualified Code(s): I10 - Essential (primary) hypertension
[2021-01-15] MEDS: MIRTAZAPINE TAB 15 MG TAB PO SCH (20:24)
[2021-01-16] MEDS: MEMANTINE HCL 10 MG TAB PO SCH ×2 (08:40→22:41)
[2021-01-16] MEDS: FUROSEMIDE 20 MG TAB PO SCH (08:41)
[2021-01-16] MEDS: METOPROLOL SUCC 50MG EXT REL TAB PO SCH (08:41)
[2021-01-16] MEDS: POTASSIUM CHLORIDE 10 MEQ TABCR PO SCH (08:41)
[2021-01-16] MEDS: FAMOTIDINE 20 MG TAB PO SCH ×2 (08:41→20:30)
[2021-01-16] MEDS: APIXABAN 2.5 MG TAB PO SCH ×2 (08:41→20:30)
[2021-01-16] MEDS: FERROUS SULFATE 325 MG TAB PO SCH ×3 (08:42→20:30)
[2021-01-16] MEDS: PANTOprazole 40 MG TAB PO SCH ×3 (08:42→20:31)
[2021-01-16] MEDS: DOCUSATE SODIUM/SENNA 50/8.6MG TAB PO SCH ×2 (08:42→20:30)
[2021-01-16] MEDS: ACETAMINOPHEN 500 MG TAB PO PRN (08:50)
[2021-01-16] MEDS: DICLOFENAC SOD 1% GEL 100 GM TUBE EXT SCH ×4 (08:59→20:31)
--- NOTE | 2021-01-16 11:54 | Hospitalist Progress Note ---
Date of Service January 16, 2021 Assessment & Plan (1) Acute GI bleeding: Plan: Acute GI bleedinyo female presenting from [facility] with complaint of black, tarry heme + stools. Patient on Eliquis anticoagulation for atrial fibrillation. - Hgb was stable to actually improved at 13.7 for many days - increased PPI PO BID x 4-6 weeks -dcd home pepcid - GI consult appreciated -> Plan for EGD in 2-3 weeks after Covid isolation is done. - No further melenic stools reported. - restarted Eliquis on 01/10 -No need to recheck CBC unless has obvious bleeding -no bowel movement in many days until finally on 01/15-no melena (2) COVID-19: Plan: Covid-19 positive on admission (01/05). Tested negative at [facility] on 01/02/2021 with PCR and negative with antigen test on 01/04/2021. - Patient denies any symptoms of Covid-19 and here has no cough, no hypoxia, no fevers, no diarrhea/GI symptoms - Given high specificity (98 - 99%) of PCR test (ie, low false positives), we are assuming this is a true positive. While she had Covid in July and is vaccinated, it is possible that she has an asymptomatic infection as the vaccinations are not sterilizing of the virus. However, this does not necessarily mean that she is contagious especially as she is completely asymptomatic. -Previous hospitalist discussed this with infection control who agreed with not retesting, however I feel that if she has an antigen test that is negative on 2 occasions, at least 24 hours apart, that would prove that she does not have a contagious infection -COVID antigen test 01/10 and 01/11 negative, however Infection Control here requested a PCR test and still positive unfortunately on 01/11 -> Presently [facility] cannot take her back while Covid-positive. remove isolation precautions on 01/16 can discharge on 01/18 (3) Atrial fibrillation: Plan: Rate controlled atrial fibrillation - Continue Metoprolol 50mg po qAM -continue Eliquis (4) Dementia: Plan: Moderate to severe and chronic. Patient oriented to self. Has had some intermittent agitation - Continue Namenda & mirtazapine - Frequent orientation, delirium prevention strategies - Only using medication as last resort for patient and staff safety. No need so far. (5) Hypertension: Plan: Blood pressure mildly elevated at times - Continue metoprolol & furosemide - Continue to monitor (6) Rib pain: Plan: Tenderness with palpation left rib. CXR on 01/06 shows possible left 9th rib fracture. - Tylenol PRN pain -continue voltaren gel (7) Vertebral compression fracture: Plan: With multiple likely subacute vertebral compression fractures seen on imaging here, does not complain of pain Tylenol as needed (8) DVT prophylaxis: Plan: Constipation-continue senna/docusate bid, continue bisacodyl [place] daily prn, finally did have a BM on 01/15 (8) DVT prophylaxis: SCDs, Eliquis Disposition-continued stay, re-order PT/OT today Dc to [facility] on 01/18 as per case management discussion with [facility]-they require 14 days from the time of first positive Covid test However, patient's Covid precautions can be discontinued here starting 01/16 as per [facility] policy Admission and Anticipated Discharge Date Admission Date: January 07, 2021 Subjective patient pleasantly confused, no new issues, d/w infection control, removed isolation precautions today per CM, she can go to [facility] on Sat will re-order PT/OT to make sure she is strong enough Review of Systems Review of Systems: All systems reviewed & are unremarkable except as noted in Subjective Physical Exam Constitutional: WD/WN, vitals as above + thin; no acute distress Neck: trachea midline, no thyromegaly Respiratory: normal respiratory effort, lungs clear to auscultation Cardiovascular: Rate/Rhythm: + tachycardic and + irregularly irregular Heart Sounds: normal S1 and normal S2; no murmur Vessels: no JVD Extremities: normal capillary refill; no edema Gastrointestinal (Abdomen): normal bowel sounds, soft, nontender, no hepatosplenomegaly Musculoskeletal: no cyanosis or clubbing, extremities motor strength 5/5 Skin: normal turgor and + dry skin; no wound Neurologic: patellar DTR's 2+ bilat, sensation intact and PERRL, EOMI, accom modation nl, no face palsy, no dysarthria Psychiatric: Orientation: alert, oriented to person and cooperative; + not oriented to place and + not oriented to time Results & Data Results & Data ([facility]) Vital Signs (Past 12 Hours) Vital Signs Temp Pulse Resp BP Pulse Ox 01/16/21 08:50 36.8 C 102 H 18 118/62 95 Medications Administered Current Inpatient Medications Acetaminophen (Acetaminophen 500 Mg Tab) 1,000 mg PO TID PRN PRN Reason: Pain Stop: 02/04/21 22:47 Last Admin: 01/08/21 17:40 Dose: 1,000 mg Documented by: Apixaban (Apixaban 2.5 Mg Tab) 2.5 mg PO BID DESIRAE Stop: 02/09/21 20:59 Last Admin: 01/16/21 08:41 Dose: 2.5 mg Documented by: Benzonatate (Benzonatate 100 Mg Capsule) 100 mg PO BID PRN PRN Reason: Cough Stop: 02/04/21 22:41 Bisacodyl (Bisacodyl 10 Mg Supp) 10 mg PA DAILY PRN PRN Reason: Constipation Stop: 02/12/21 17:25 Last Admin: 01/14/21 06:17 Dose: 10 mg Documented by: Diclofenac Sodium (Diclofenac Sod 1% Gel 100 Gm Tube) 2 gm EXT QID [facility] Stop: 02/12/21 20:59 Last Admin: 01/16/21 08:59 Dose: Not Given Documented by: Famotidine (Famotidine 20 Mg Tab) 20 mg PO BID [facility] Stop: 02/04/21 22:59 Last Admin: 01/16/21 08:41 Dose: 20 mg Documented by: Ferrous Sulfate (Ferrous Sulfate 325 Mg Tab) 325 mg PO BID [facility] Stop: 02/04/21 22:59 Last Admin: 01/16/21 08:59 Dose: Not Given Documented by: Furosemide (Furosemide 20 Mg Tab) 20 mg PO QAM [facility] Stop: 02/05/21 08:59 Last Admin: 01/16/21 08:41 Dose: 20 mg Documented by: Lorazepam (Ativan) 0.5 mg in 1 mls @ 1 mls/min IV Q4H PRN PRN Reason: Anxiety/Agitation Stop: 02/05/21 18:05 Memantine (Memantine Hcl 10 Mg Tab) 10 mg PO BID [facility] Stop: 02/04/21 22:59 Last Admin: 01/16/21 08:40 Dose: 10 mg Documented by: Metoprolol Succinate (Metoprolol Succ 50mg Ext Rel Tab) 50 mg PO QAM [facility] Stop: 02/05/21 08:59 Last Admin: 01/16/21 08:41 Dose: 50 mg Documented by: Mirtazapine (Mirtazapine Tab 15 Mg Tab) 15 mg PO HS [facility] Stop: 02/04/21 22:59 Last Admin: 01/15/21 20:24 Dose: Not Given Documented by: Olanzapine (Olanzapine 10 Mg/2.1 Ml Sdv) 5 mg IM Q4H PRN PRN Reason: Anxiety/Agitation Stop: 02/05/21 18:14 Ondansetron HCl (Ondansetron Inj 2 Mg/Ml 2 Ml Vial) 4 mg IV Q6H PRN PRN Reason: Nausea Stop: 02/04/21 22:41 Last Admin: 01/09/21 06:28 Dose: 4 mg Documented by: Pantoprazole Sodium (Pantoprazole 40 Mg Tab) 40 mg PO BID [facility] Stop: 02/05/21 20:59 Last Admin: 01/16/21 08:59 Dose: Not Given Documented by: Potassium Chloride (Potassium Chloride 10 Meq Tabcr) 10 meq PO QAM [facility] Stop: 02/10/21 08:59 Last Admin: 01/16/21 08:41 Dose: 10 meq Documented by: Senna/Docusate Sodium (Docusate Sodium/Senna 50/8.6mg Tab) 1 tab PO BID [facility] Stop: 02/12/21 20:59 Last Admin: 01/16/21 08:42 Dose: 1 tab Documented by: PG Care Time/CCT Total # of Minutes Spent Total Time Spent with Patient: Total time spent is greater than 50% in coordination of care (as documented) at patient's floor/unit and/or counseling patient: Coding Level of Care Code 73576 Subseq Hosp Care Lvl 2 Diagnoses Acute GI bleeding K92.2 COVID-19 U07.1 Atrial fibrillation I48.20 Atrial fibrillation type: unspecified chronic Dementia F03.90 Dementia behavioral disturbance: without behavioral disturbance Dementia type: unspecified type Hypertension I10 Hypertension type: primary hypertension Rib pain R07.81 Vertebral compression fracture M48.50XA DVT prophylaxis Z29.9 (1) Atrial fibrillation Atrial fibrillation type: unspecified chronic Qualified Code(s): I48.20 - Chronic atrial fibrillation, unspecified (2) Dementia Dementia behavioral disturbance: without behavioral disturbance Dementia type: unspecified type Qualified Code(s): F03.90 - Unspecified dementia without behavioral disturbance (3) Hypertension Hypertension type: primary hypertension Qualified Code(s): I10 - Essential (primary) hypertension
[2021-01-16] MEDS: MIRTAZAPINE TAB 15 MG TAB PO SCH (20:30)
[2021-01-17] MEDS: FAMOTIDINE 20 MG TAB PO SCH ×2 (10:32→20:35)
[2021-01-17] MEDS: MEMANTINE HCL 10 MG TAB PO SCH ×2 (10:33→20:35)
[2021-01-17] MEDS: DOCUSATE SODIUM/SENNA 50/8.6MG TAB PO SCH ×2 (10:34→20:35)
[2021-01-17] MEDS: FUROSEMIDE 20 MG TAB PO SCH (10:34)
[2021-01-17] MEDS: PANTOprazole 40 MG TAB PO SCH ×2 (10:35→20:36)
[2021-01-17] MEDS: FERROUS SULFATE 325 MG TAB PO SCH ×2 (10:35→20:35)
[2021-01-17] MEDS: METOPROLOL SUCC 50MG EXT REL TAB PO SCH (10:35)
[2021-01-17] MEDS: POTASSIUM CHLORIDE 10 MEQ TABCR PO SCH (10:36)
[2021-01-17] MEDS: DICLOFENAC SOD 1% GEL 100 GM TUBE EXT SCH ×4 (10:36→20:36)
[2021-01-17] MEDS: APIXABAN 2.5 MG TAB PO SCH ×2 (10:36→20:35)
--- NOTE | 2021-01-17 11:42 | Hospitalist Progress Note ---
Date of Service January 17, 2021 Assessment & Plan (1) Acute GI bleeding: Plan: Acute GI bleedinyo female presenting from [facility] with complaint of black, tarry heme + stools. Patient on Eliquis anticoagulation for atrial fibrillation. - Hgb was stable to actually improved at 13.7 for many days - increased PPI PO BID x 4-6 weeks -dcd home pepcid - GI consult appreciated -> Plan for EGD in 2-3 weeks after Covid isolation is done. - No further melenic stools reported. - restarted Eliquis on 01/10 -No need to recheck CBC unless has obvious bleeding -no bowel movement in many days until finally on 01/15-no melena (2) COVID-19: Plan: Covid-19 positive on admission (01/05). Tested negative at [facility] on 01/02/2021 with PCR and negative with antigen test on 01/04/2021. - Patient denies any symptoms of Covid-19 and here has no cough, no hypoxia, no fevers, no diarrhea/GI symptoms - Given high specificity (98 - 99%) of PCR test (ie, low false positives), we are assuming this is a true positive. While she had Covid in July and is vaccinated, it is possible that she has an asymptomatic infection as the vaccinations are not sterilizing of the virus. However, this does not necessarily mean that she is contagious especially as she is completely asymptomatic. -Previous hospitalist discussed this with infection control who agreed with not retesting, however I feel that if she has an antigen test that is negative on 2 occasions, at least 24 hours apart, that would prove that she does not have a contagious infection -COVID antigen test 01/10 and 01/11 negative, however Infection Control here requested a PCR test and still positive unfortunately on 01/11 -> Presently [facility] cannot take her back while Covid-positive. remove isolation precautions on 01/16 can discharge on 01/18 (3) Atrial fibrillation: Plan: Rate controlled atrial fibrillation - Continue Metoprolol 50mg po qAM -continue Eliquis (4) Dementia: Plan: Moderate to severe and chronic. Patient oriented to self. Has had some intermittent agitation - Continue Namenda & mirtazapine - Frequent orientation, delirium prevention strategies - Only using medication as last resort for patient and staff safety. No need so far. (5) Hypertension: Plan: Blood pressure mildly elevated at times - Continue metoprolol & furosemide - Continue to monitor (6) Rib pain: Plan: Tenderness with palpation left rib. CXR on 01/06 shows possible left 9th rib fracture. - Tylenol PRN pain -continue voltaren gel (7) Vertebral compression fracture: Plan: With multiple likely subacute vertebral compression fractures seen on imaging here, does not complain of pain Tylenol as needed (8) DVT prophylaxis: Plan: Constipation-continue senna/docusate bid, continue bisacodyl NE daily prn, finally did have a BM on 01/15 (8) DVT prophylaxis: SCDs, Eliquis Disposition-continued stay, re-order PT/OT today Dc to [facility] on 01/18 as per case management discussion with [facility]-they require 14 days from the time of first positive Covid test However, patient's Covid precautions can be discontinued here starting 01/16 as per [facility] policy Admission and Anticipated Discharge Date Admission Date: January 07, 2021 Subjective patient pleasantly confused no issues plan for d/c tomorrow Review of Systems Review of Systems: All systems reviewed & are unremarkable except as noted in Subjective Physical Exam Constitutional: WD/WN, vitals as above + thin; no acute distress Neck: trachea midline, no thyromegaly Respiratory: normal respiratory effort, lungs clear to auscultation Cardiovascular: Rate/Rhythm: + tachycardic and + irregularly irregular Heart Sounds: normal S1 and normal S2; no murmur Vessels: no JVD E xtremities: normal capillary refill; no edema Gastrointestinal (Abdomen): normal bowel sounds, soft, nontender, no hepatosplenomegaly Musculoskeletal: no cyanosis or clubbing, extremities motor strength 5/5 Skin: normal turgor and + dry skin; no wound Neurologic: patellar DTR's 2+ bilat, sensation intact and PERRL, EOMI, accommodation nl, no face palsy, no dysarthria Psychiatric: Orientation: alert, oriented to person and cooperative; + not oriented to place and + not oriented to time Results & Data Results & Data (MN) Vital Signs (Past 12 Hours) Vital Signs Temp Pulse Resp BP Pulse Ox 01/17/21 00:03 36.7 C 91 H 18 94/58 L 96 Medications Administered Current Inpatient Medications Acetaminophen (Acetaminophen 500 Mg Tab) 1,000 mg PO TID PRN PRN Reason: Pain Stop: 02/04/21 22:47 Last Admin: 01/08/21 17:40 Dose: 1,000 mg Documented by: Apixaban (Apixaban 2.5 Mg Tab) 2.5 mg PO BID [facility] Stop: 02/09/21 20:59 Last Admin: 01/17/21 10:36 Dose: 2.5 mg Documented by: Benzonatate (Benzonatate 100 Mg Capsule) 100 mg PO BID PRN PRN Reason: Cough Stop: 02/04/21 22:41 Bisacodyl (Bisacodyl 10 Mg Supp) 10 mg NE DAILY PRN PRN Reason: Constipation Stop: 02/12/21 17:25 Last Admin: 01/14/21 06:17 Dose: 10 mg Documented by: Diclofenac Sodium (Diclofenac Sod 1% Gel 100 Gm Tube) 2 gm EXT QID [facility] Stop: 02/12/21 20:59 Last Admin: 01/17/21 10:36 Dose: 2 gm Documented by: Famotidine (Famotidine 20 Mg Tab) 20 mg PO BID [facility] Stop: 02/04/21 22:59 Last Admin: 01/17/21 10:32 Dose: 20 mg Documented by: Ferrous Sulfate (Ferrous Sulfate 325 Mg Tab) 325 mg PO BID [facility] Stop: 02/04/21 22:59 Last Admin: 01/17/21 10:35 Dose: Not Given Documented by: Furosemide (Furosemide 20 Mg Tab) 20 mg PO QAM [facility] Stop: 02/05/21 08:59 Last Admin: 01/17/21 10:34 Dose: Not Given Documented by: Lorazepam (Ativan) 0.5 mg in 1 mls @ 1 mls/min IV Q4H PRN PRN Reason: Anxiety/Agitation Stop: 02/05/21 18:05 Memantine (Memantine Hcl 10 Mg Tab) 10 mg PO BID [facility] Stop: 02/04/21 22:59 Last Admin: 01/17/21 10:33 Dose: 10 mg Documented by: Metoprolol Succinate (Metoprolol Succ 50mg Ext Rel Tab) 50 mg PO QAM [facility] Stop: 02/05/21 08:59 Last Admin: 01/17/21 10:35 Dose: Not Given Documented by: Mirtazapine (Mirtazapine Tab 15 Mg Tab) 15 mg PO HS [facility] Stop: 02/04/21 22:59 Last Admin: 01/16/21 20:30 Dose: 15 mg Documented by: Olanzapine (Olanzapine 10 Mg/2.1 Ml Sdv) 5 mg IM Q4H PRN PRN Reason: Anxiety/Agitation Stop: 02/05/21 18:14 Ondansetron HCl (Ondansetron Inj 2 Mg/Ml 2 Ml Vial) 4 mg IV Q6H PRN PRN Reason: Nausea Stop: 02/04/21 22:41 Last Admin: 01/09/21 06:28 Dose: 4 mg Documented by: Pantoprazole Sodium (Pantoprazole 40 Mg Tab) 40 mg PO BID [facility] Stop: 02/05/21 20:59 Last Admin: 01/17/21 10:35 Dose: Not Given Documented by: Potassium Chloride (Potassium Chloride 10 Meq Tabcr) 10 meq PO QAM [facility] Stop: 02/10/21 08:59 Last Admin: 01/17/21 10:36 Dose: 10 meq Documented by: Senna/Docusate Sodium (Docusate Sodium/Senna 50/8.6mg Tab) 1 tab PO BID [facility] Stop: 02/12/21 20:59 Last Admin: 01/17/21 10:34 Dose: Not Given Documented by: PG Care Time/CCT Total # of Minutes Spent Total Time Spent with Patient: Total time spent is greater than 50% in coordination of care (as documented) at patient's floor/unit and/or counseling patient: Coding Level of Care Code 09475 Subseq Hosp Care Lvl 1 Diagnoses Acute GI bleeding K92.2 COVID-19 U07.1 Atrial fibrillation I48.20 Atrial fibrillation type: unspecified chronic Dementia F03.90 Dementia type: unspecified type Dementia behavioral disturbance: without behavioral disturbance Hypertension I10 Hypertension type: primary hypertension Rib pain R07.81 Vertebral compression fracture M48.50XA DVT prophylaxis Z29.9 (1) Atrial fibrillation Atrial fibrillation type: unspecified chronic Qualified Code(s): I48.20 - Chronic atrial fibrillation, unspecified (2) Dementia Dementia type: unspecified type Dementia behavioral disturbance: without behavioral disturbance Qualified Code(s): F03.90 - Unspecified dementia without behavioral disturbance (3) Hypertension Hypertension type: primary hypertension Qualified Code(s): I10 - Essential (primary) hypertension
[2021-01-17] MEDS: ACETAMINOPHEN 500 MG TAB PO PRN (17:12)
[2021-01-17] MEDS: MIRTAZAPINE TAB 15 MG TAB PO SCH (20:35)
[2021-01-18] MEDS: FERROUS SULFATE 325 MG TAB PO SCH (08:29)
[2021-01-18] MEDS: APIXABAN 2.5 MG TAB PO SCH (08:29)
[2021-01-18] MEDS: DICLOFENAC SOD 1% GEL 100 GM TUBE EXT SCH (08:29)
[2021-01-18] MEDS: PANTOprazole 40 MG TAB PO SCH (08:29)
[2021-01-18] MEDS: MEMANTINE HCL 10 MG TAB PO SCH (08:29)
[2021-01-18] MEDS: POTASSIUM CHLORIDE 10 MEQ TABCR PO SCH (08:29)
[2021-01-18] MEDS: FUROSEMIDE 20 MG TAB PO SCH (08:29)
[2021-01-18] MEDS: FAMOTIDINE 20 MG TAB PO SCH (08:29)
[2021-01-18] MEDS: METOPROLOL SUCC 50MG EXT REL TAB PO SCH (08:29)
[2021-01-18] MEDS: DOCUSATE SODIUM/SENNA 50/8.6MG TAB PO SCH (08:29)
--- NOTE | 2021-01-20 07:38 | Discharge Summary ---
Date of Service January 18, 2021 Admission HPI Per Admitting Provider Olegario Smyth is an 89yo female with history of atrial fibrillation on Eliquis anticoagulation, GERD, HTN and Dementia. She presents from [facility] with complaint of black bowel movements. Patient is a poor historian secondary to underlying dementia. She is unaware of the events preceding her arrival. History obtained mainly through discussion with ER attending and chart review. By report, patient had black, tarry bowel movements yesterday. Patient denies chest pain, cough, SOB, dizziness, abdominal pain, nausea, vomiting or constipation. She has occasional diarrhea but is unaware of any blood in her bowel movements. She is complaining only of left rib pain. She is to have repair of her left ankle hardware sometime in the future. ER Course: Heme + stools from 01/04/21 and today Principal Diagnosis Acute GI bleed Discharge Exam Constitutional WD/WN, vitals as above + thin; no acute distress Neck trachea midline, no thyromegaly Respiratory normal respiratory effort, lungs clear to auscultation Cardiovascular Rate/Rhythm: + tachycardic and + irregularly irregular Heart Sounds: normal S1 and normal S2; no murmur Vessels: no JVD Extremities: normal capillary refill; no edema Gastrointestinal (Abdomen) normal bowel sounds, soft, nontender, no hepatosplenomegaly Musculoskeletal no cyanosis or clubbing, extremities motor strength 5/5 Skin normal turgor and + dry skin; no wound Neurologic patellar DTR's 2+ bilat, sensation intact and PERRL, EOMI, accommodation nl, no face palsy, no dysarthria Psychiatric Orientation: alert, oriented to person and cooperative; + not oriented to place and + not oriented to time Discharge Data Allergies Allergy/AdvReac Type Severity Reaction Status Date / Time No Known Drug Allergies Allergy Unknown Verified 01/05/21 15:13 Consultations 01/05/21 18:02 ED Decision to Admit Stat 01/05/21 22:42 Consult Gastroenterology Routine Ordered Studies 01/05/21 14:56 CT abd pelvis IV con only Stat Hospital Course (1) Acute GI bleeding: Acute GI bleedinyo female presenting from [facility] with complaint of black, tarry heme + stools. Patient on Eliquis anticoagulation for atrial fibrillation. - Hgb was stable to actually improved at 13.7 for many days - increased PPI PO BID x 4-6 weeks -dcd home pepcid - GI consult appreciated -> Plan for EGD in 2-3 weeks after Covid isolation is done. - No further melenic stools reported. - restarted Eliquis on 01/10 -No need to recheck CBC unless has obvious bleeding -no bowel movement in many days until finally on 01/15-no melena (2) COVID-19: Covid-19 positive on admission (01/05). Tested negative at [facility] on 01/02/2021 with PCR and negative with antigen test on 01/04/2021. - Patient denies any symptoms of Covid-19 and here has no cough, no hypoxia, no fevers, no diarrhea/GI symptoms - Given high specificity (98 - 99%) of PCR test (ie, low false positives), we are assuming this is a true positive. While she had Covid in July and is vaccinated, it is possible that she has an asymptomatic infection as the vaccinations are not sterilizing of the virus. However, this does not necessarily mean that she is contagious especially as she is completely asymptomatic. -Previous hospitalist discussed this with infection control who agreed with not retesting, however I feel that if she has an antigen test that is negative on 2 occasions, at least 24 hours apart, that would prove that she does not have a contagious infection -COVID antigen test 01/10 and 01/11 negative, however Infection Control here requested a PCR test and still positive unfortunately on 01/11 -> Presently [facility] cannot take her back while Covid-positive. remove isolation precautions on 01/16 can discharge on 01/18 (3) Atrial fibrillation: Rate controlled atrial fibrillation - Continue Metoprolol 50mg po qAM -continue Eliquis (4) Dementia: Moderate to severe and chronic. Patient oriented to self. Has had some intermittent agitation - Continue Namenda & mirtazapine - Frequent orientation, delirium prevention strategies - Only using medication as last resort for patient and staff safety. No need so far. (5) Hypertension: Blood pressure mildly elevated at times - Continue metoprolol & furosemide - Continue to monitor (6) Rib pain: Tenderness with palpation left rib. CXR on 01/06 shows possible left 9th rib fracture. - Tylenol PRN pain -continue voltaren gel (7) Vertebral compression fracture: With multiple likely subacute vertebral compression fractures seen on imaging here, does not complain of pain Tylenol as needed (8) DVT prophylaxis: Constipation-continue senna/docusate bid, continue bisacodyl [place] daily prn, finally did have a BM on 01/15 (8) DVT prophylaxis: SCDs, Eliquis Disposition-continued stay, re-order PT/OT today Dc to [facility] on 01/18 as per case management discussion with [facility]-they require 14 days from the time of first positive Covid test However, patient's Covid precautions can be discontinued here starting 01/16 as per [facility] policy Total Time Total Time Spent Total Time Spent (In Minutes): 15 Discharge Plan Discharge Items Patient Disposition: Personal Correction Reason For Visit: GIB Discharge Diagnosis: GI bleed Condition on Discharge: Good Activity: Resume your previous activity Weightbearing: Full weightbearing Non-emergency contact: Primary Care Provider Call non-emergency contact if: you have any medication questions Follow-up/Referrals: Madeleine Milan [Primary Care Provider] - Diet: Regular Diet Texture: Easy to Chew Addtl Attending Provider Instructions: see discharge summary for details only medication change is Protonix 40mg twice a day, continue twice a day for two more weeks then decrease to 40mg daily patient has been stable for 10 days, no issues at all with COVID 19, no longer considered contagious Pending Studies at Discharge: No Stand-Alone Forms: My [facility], Smoking Cessation Skilled Items Patient informed of condition?: Yes DNR: Yes Discharge Level of Care: Other Communicable Disease: No Discharge Prognosis: Stable Lines: None Urinary Catheter: No Medications and DC Order Prescriptions: New pantoprazole 40 mg Tablet,Delayed Release (Dr/Ec) 40 mg PO BID 30 Days Qty: 60 RF: 3 Continued Eliquis 2.5 mg tablet 2.5 mg PO BID RF: 0 ferrous sulfate 325 mg (65 mg iron) tablet 325 mg PO BID RF: 0 furosemide 20 mg tablet 20 mg PO QAM RF: 0 memantine 10 mg tablet 10 mg PO BID RF: 0 mirtazapine 15 mg tablet 15 mg PO HS RF: 0 ascorbic acid (vitamin C) 250 mg tablet 250 mg PO BID RF: 0 cholecalciferol (vitamin D3) 25 mcg (1,000 unit) capsule 25 mcg PO QAM RF: 0 benzonatate 100 mg capsule 100 mg PO BID PRN (Reason: Cough) RF: 0 docusate sodium 100 mg capsule 100 mg PO BID PRN (Reason: Constipation) RF: 0 triamcinolone acetonide 0.1 % cream 1 applic topical .COMPLEX PRN (Reason: .) RF: 0 potassium chloride 10 mEq Capsule, Extended Release 10 meq PO QAM RF: 0 metoprolol succinate 50 mg Tablet Extended Release 24 Hr 50 mg PO QAM RF: 0 acetaminophen 500 mg Tablet 1,000 mg PO TID PRN (Reason: Pain) RF: 0 Ensure Liquid 1 ea PO DAILY RF: 0 Biotene Dry Mouth Oral Rinse Mouthwash 1 ea PO TID PRN (Reason: Dry Mouth) RF: 0 Discontinued pantoprazole 40 mg Tablet,Delayed Release (Dr/Ec) 40 mg PO DAILY RF: 0 Discharge Orders: Discharge Order (Routine); Ordered 01/18/21 Ordered By: Jordan Daniel Admission Data Admit Date/Time: 01/07/21 18:18 Attending Provider: Jordan Daniel Admit Provider: Ritika Tejada [facility] Other Providers: Max Jensen ; Ritika Tejada ; Anand Mitchell Other Interventions: Discharge Summary Assessment (RN) Last Done: 01/18/21 10:51 Coding Level of Care Code D/C DAY MANAGEMENT <30 MINS Diagnoses Acute GI bleeding K92.2 COVID-19 U07.1 Atrial fibrillation I48.20 Atrial fibrillation type: unspecified chronic Dementia F03.90 Dementia behavioral disturbance: without behavioral disturbance Dementia type: unspecified type Hypertension I10 Hypertension type: primary hypertension Rib pain R07.81 Vertebral compression fracture M48.50XA DVT prophylaxis Z29.9
--- NOTE | 2021-02-02 08:06 | Coding Query ---
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 Please assist us with the question(s) below: Coding Question(s): Patient admitted with GI bleed, on anticoagulants. 's progress note/addendum stated GI bleed due to anticoagulants. Patient for Outpatient EGD. Please check below the phrase that describes the etiology of the bleed & thanks for your help! Vasile Vázquez [facility] Physician's Response(s): Anticoagulant use was the source of the GI hemorrhage Gastric Hemorrhage, Unknown Etiology x Other: Please document: unclear etiology of GI bleeding, did not have endoscopy while admitted, bleeding stopped Principal Diagnosis: "that condition established after study, to be chiefly responsible for occasioning the admission of the patient to the hospital for care." Co-Existing Principal Diagnosis: "when two or more diagnoses equally meet the criteria for principal diagnosis as determined by the circumstances of admission, diagnostic work up, and/or therapy provided, and the Alphabetic Index, Tabular List, or another coding guideline does not provide sequencing direction, any one of the diagnoses may be sequenced first." "When the physician has documented what appears to be a current diagnosis in the body of the record, but has not included the diagnosis in the final diagnostic statement, the physician should be asked whether the diagnosis should be added." (Source Coding Clinic 2 QTR90. p3-4) [facility]
== END 2021-01-18 12:00 | disposition home or self-care (01) | DRG 377 ==
LOC: ED 13:03 → 2W 13:03 → SUATTDRO 19:50 → 2W 22:17 → SUATTDRO 01-07 18:18